=== PATIENT | male | born 1955 | race Two or more races ===

== ENCOUNTER 2021-05-10 10:17 | Inpatient (IN) | payer OTHER ==
[2021-05-10] VITALS (7 sets, daily range): BP systolic 114–173; BP diastolic 75–92
[~2021-05-10] VITALS: Ht 175.3 cm; Wt 115.1 kg
--- NOTE | 2021-05-10 10:21 | PHYS DOC ---
Past Medical History Past Medical History: No Pertinent History Past Surgical History: No Surgical History Smoking Status: Current Every Day Smoker Alcohol Use: None Drug Use: None General Adult HPI: HPI: Patient is a 65 year old male who presents with right upper extremity and right lower extremity weakness and tingling sensation. He went to bed around 9 PM last night and awoke around midnight, when he noticed the symptoms. He was unable to fully bear weight on his right lower extremity. He delayed coming in until after 10 AM today. He denies any previous similar symptoms. He denies headache, dizziness, vision loss, vision changes, difficulty swallowing, speech difficulty, denies facial numbness or tingling or facial droop. He denies chest pain, palpitations, dyspnea, dagmar pain, nausea or vomiting. He denies fall or syncope. He denies head injury. He has not seen a physician in at least 15 years. He claims to have no known medical problems, though he admits that he does not seek any routine medical care. Review of Systems: Review of Systems: Constitutional: Denies fever or chills. [] Eyes: Denies change in visual acuity or vision loss. HENT: Denies nasal congestion or sore throat. [] Respiratory: Denies cough or shortness of breath. [] Cardiovascular: Denies chest pain or edema. [] GI: Denies abdominal pain, nausea, vomiting : Denies urinary symptoms or incontinence. Musculoskeletal: Denies back pain or joint pain. [] Integument: Denies rash. [] Neurologic: Denies headache, dizziness, vertigo or syncope. Reports subjective right upper extremity and right lower extremity weakness and tingling. Denies speech difficulty. Psychiatric: Denies depression or anxiety. [] Heart Score: C/O Chest Pain: No Risk Factors: Risk Factors: DM, Current or recent (<one month) smoker, HTN, HLP, family history of CAD, obesity. Risk Scores: Score 0 - 3: 2.5% MACE over next 6 weeks - Discharge Home Score 4 - 6: 20.3% MACE over next 6 weeks - Admit for Clinical Observation Score 7 - 10: 72.7% MACE over next 6 weeks - Early Invasive Strategies Physical Exam: PE: Constitutional: Well developed, well nourished, no acute distress, non-toxic appearance. [] HENT: Normocephalic, atraumatic, oropharynx is patent and clear, no obvious facial asymmetry, no facial trauma or edema noted. Mucous membranes are moist. TMs are clear bilaterally Eyes: PERRL, EOMI, conjunctiva normal, no discharge. No nystagmus. Neck: Normal range of motion, no tenderness, supple, no stridor. Trachea midline, no JVD, no meningismus. Cardiovascular:Heart rate regular rhythm, no murmur, +2 radial and +2 posterior tibial pulses bilaterally. Lungs & Thorax: Bilateral breath sounds clear to auscultation [] Abdomen: Abdomen is obese, soft, nondistended, nontender to palpation. Skin: Warm, dry, no erythema, no rash. [] Back: No tenderness, no CVA tenderness. [] Extremities: No tenderness, no cyanosis, no clubbing, ROM intact, no edema. No calf tenderness. No limb deformity. Neurologic: He is awake, alert, conversant, fully oriented x3, there is subtle right-sided tongue deviation, no facial asymmetry or facial droop noted. His speech is clear and fluent. No gross visual deficit noted. Sensation is intact bilaterally. Display Card Writer strength normal and equal bilaterally. No pronator drift is noted. No upper extremity limb ataxia is noted. No lower extremity limb ataxia is noted. There is subtle weakness of the right lower extremity with extension against gravity, the leg does bounce but it does not drop to the bed. He was able to transfer from the ED gurney to the CT without difficulty or assistance. Psychologic: Affect relatively flat, though he is pleasant cooperative. EKG: EKG: EKG is interpreted at 1106 Rhythm is sinus Rate is 94 bpm QTc 489 ms No STEMI Radiology/Procedures: Radiology/Procedures: IMAGING REPORT Signed PATIENT: JACK BEST ACCOUNT: [id number] : 1955 LOCATION: ER AGE: 65 SEX: M EXAM STATUS: PRE ER ORD. PHYSICIAN: RYAN ALCALA DO REASON: right sided weakness PROCEDURE: CT CODE STROKE HEAD WO EXAM: CT head without contrast INDICATION: Stroke alert COMPARISON: None TECHNIQUE: Axial CT imaging through the head without intravenous contrast. One or more of the following individualized dose reduction techniques were utilized for this examination: 1. Automated exposure control 2. Adjustment of the mA and/or kV according to patient size 3. Use of iterative reconstruction technique. FINDINGS: No intracranial hemorrhage, acute infarct, or mass lesion. Ventricles and sulci are mildly enlarged. There is mild periventricular white matter hypoattenuation. Cordova-white matter differentiation is maintained. The skull and scalp are intact. Paranasal sinuses and mastoid air cells are clear. Globes and orbits are intact. IMPRESSION: No acute intracranial abnormality. FOR INTERNAL CODING PURPOSES Critical result: Findings discussed with RYAN ALCALA DO at 05/10/2021 10:35 AM. RESULT CODE: (C) Electronically signed by: Irais East MD (05/10/2021 10:36 AM) [id number] DICTATED and SIGNED BY: IRAIS EAST MD DATE: 05/10/21 [id number] IMAGING REPORT Signed PATIENT: JACK BEST ACCOUNT: [id number] : 1955 LOCATION: ER AGE: 65 SEX: M EXAM STATUS: PRE ER ORD. PHYSICIAN: RYAN ALCALA DO REASON: right sided weakness PROCEDURE: PORTABLE CHEST 1V EXAM: Chest, single view. HISTORY: Right-sided weakness. COMPARISON: None. FINDINGS: A frontal view of the chest is obtained. There is no infiltrate, pleural effusion or pneumothorax. The heart is normal in size. IMPRESSION: No acute pulmonary finding. Electronically signed by: Vivienne Hernandez MD (05/10/2021 10:42 AM) [facility] DICTATED and SIGNED BY: VIVIENNE HERNANDEZ MD DATE: 05/10/21 [id number] 0 Course & Med Decision Making: Course & Med Decision Making Pertinent Labs and Imaging studies reviewed. (See chart for details) Patient is given p.o. aspirin. CT imaging studies discussed and reviewed with the patient. He does not qualify for TPA. I do suspect he has had a mild CVA. I recommend hospitalization and neurology consultation and likely further imaging, such as MRI, as well as formal stroke work-up. He is comfortable with the plan of care. Systolic blood pressure remains under 200, though is still elevated, I do suspect he likely has chronic underlying hypertension that has been untreated for some time, he will likely require formal antihypertensive medications. I discussed all the findings and differential diagnosis with him. He is accepted for admission by Dr. Boland. Javier Disclaimer: Javier Disclaimer: This electronic medical record was generated, in whole or in part, using a voice recognition dictation system. Departure Departure Impression: Primary Impression: Right sided weakness Disposition: ADMITTED INPATIENT Admitting Phys[facility] Condition: STABLE (Dr. Boland) RYAN ALCALA DO May 10, 2021 10:21
--- NOTE | 2021-05-10 10:38 | RAD ---
EXAM: CT head without contrast INDICATION: Stroke alert COMPARISON: None TECHNIQUE: Axial CT imaging through the head without intravenous contrast. One or more of the following individualized dose reduction techniques were utilized for this examinat ion: 1. Automated exposure control 2. Adjustment of the mA and/or kV according to patient size 3. Use of iterative reconstruction technique. FINDINGS: No intracranial hemorrhage, acute infarct, or mass lesion. Ventricles and sulci are mildly enlarged. There is mild periventricular white matter hypoattenuation. Cordova-white matter differentiation is main tained. The skull and scalp are intact. Paranasal sinuses and mastoid air cells are clear. Globes and orbits are intact. IMPRESSION: No acute intracranial abnormality. FOR INTERNAL CODING PURPOSES Critical result: Findings discussed with RYAN ALCALA DO at 05/10/2021 10:35 AM. RESULT CODE: (C) Electronically signed by: Irais East MD (05/10/2021 10:36 AM) [id number]
--- NOTE | 2021-05-10 10:44 | RAD ---
EXAM: Chest, single view. HISTORY: Right-sided weakness. COMPARISON: None. FINDINGS: A frontal view of the chest is obtained. There is no infiltrate, pleural effusion or pneumo thorax. The heart is normal in size. IMPRESSION: No acute pulmonary finding. Electronically signed by: Vivienne Harvey MD (05/10/2021 10:42 AM) [facility]
[2021-05-10] MEDS ORDERED: ASPIRIN ENTERIC COATED 325 MG TABLET.DR. PO ONE (11:00)
[2021-05-10 11:11] LABS: BASO % 0 % (0-3); EOS # 0.1 x10^3/uL (0.0-0.7); EOS % 2 % (0-3); HEMATOCRIT 45.4 % (39.0-53.0); HEMOGLOBIN 15.3 g/dL (13.0-17.5); LYMPH # 1.6 x10^3/uL (1.0-4.8); LYMPH % 23 % (24-48); MEAN CORPUSCULAR HEMOGLOBIN 32 pg (25-35); MEAN CORPUSCULAR HGB CONC 34 g/dL (31-37); MEAN CORPUSCULAR VOLUME 95 fL (79-100); MONO # 0.6 x10^3/uL (0.0-1.1); MONO % 9 % (0-9); NEUT # 4.4 x10^3/uL (1.8-7.7); NEUT % 66 % (31-73); PLATELET COUNT 202 x10^3/uL (140-400); RED CELL DISTRIBUTION WIDTH 14.1 % (11.5-14.5); WHITE BLOOD COUNT 6.7 x10^3/uL (4.0-11.0)
[2021-05-10 11:14] LABS: CALCIUM 7.6 mg/dL (8.5-10.1); CREATININE 0.9 mg/dL (0.7-1.3); POTASSIUM 3.4 mmol/L (3.5-5.1)
[2021-05-10 11:19] LABS: ALBUMIN 3.1 g/dL (3.4-5.0); ALBUMIN/GLOBULIN RATIO 0.7 (1.0-1.7); MAGNESIUM 1.8 mg/dL (1.8-2.4); PHOSPHORUS 2.7 mg/dL (2.6-4.7); TOTAL BILIRUBIN 0.8 mg/dL (0.2-1.0); TOTAL PROTEIN 7.7 g/dL (6.4-8.2)
[2021-05-10 11:35] LABS: PROTHROMBIN TIME PATIENT 12.5 SEC (11.7-14.0)
[2021-05-10] MEDS ORDERED: CONTRAST GIVEN. MC PRN (11:45)
[2021-05-10] MEDS ORDERED: IOHEXOL 350 MG/ML 100 ML VIAL. IV ONE (12:00)
--- NOTE | 2021-05-10 12:05 | RAD ---
STUDY: CT angiography of the head and neck INDICATION: Stroke alert COMPARISON: Right-sided weakness TECHNIQUE: Axial CT imaging of the head and neck utilizing angiography protocol and performed after t he intravenous administration of 75 mL Omnipaque 350 contrast. Multiplanar reformats and 3D MIP acqui sitions were obtained. Encountered areas of stenosis are measured per NASCET criteria. One or more of the following individualized dose reduction techniques were utilized for this examinat ion: 1. Automated exposure control 2. Adjustment of the mA and/or kV according to patient size 3. Use of iterative reconstruction technique. FINDINGS: CTA NECK: Arch/Proximal Great Vessels: The arch is normal in configuration. Mild calcified aortic atheroscleros is. There is mild narrowing of the left common carotid artery origin due to calcifications. Carotid Bifurcation/Cervical ICA: Mild calcifications at the carotid bulbs and bifurcations without s ignificant stenosis. Approximately 40 percent narrowing of the distal cervical left internal carotid artery due to calcifications. Vertebral Arteries: Normal caliber and patent. CTA HEAD: Posterior Circulation: The distal right intradural vertebral artery is diminutive, likely due to sten osis. The intradural left vertebral artery is normal in caliber and patent. Basilar artery, superior cerebellar arteries, and posterior cerebral arteries are normal in caliber and patent. Anterior Circulation: Internal carotid arteries, middle cerebral arteries, and anterior cerebral avery bc are normal in caliber and patent. There are calcifications in the intracranial internal carotid arteries without significant narrowing. Veins: Dural venous sinuses and jugular veins are patent. MISCELLANEOUS: Mild scattered ground glass opacities in the upper lobes. IMPRESSION: 1. No large vessel occlusion in the head or neck. 2. Mild narrowing of the distal cervical left internal carotid artery due to calcifications. 3. Small caliber of the distal intradural right vertebral artery suspicious for stenosis. FOR INTERNAL CODING PURPOSES Critical result: Findings discussed with RYAN ALCALA DO at 05/10/2021 11:53 AM. RESULT CODE: (C) Electronically signed by: Irais East MD (05/10/2021 12:02 PM) [id number]
--- NOTE | 2021-05-10 12:21 | PDOC1 ---
History and Physical Date of Service: DOS: DATE: 05/10/21 TIME: 12:13 Chief Complaint: Chief Complain: Unilateral weakness History of Present Illness: HPI: 66-year-old male with past medical history of hypertension not taking any medication and smoker who comes in with right-sided weakness and tingling sensation around 9:00 last night. Patient was unable to bear weight on his right lower extremity. He comes in 10:00 this morning with similar symptoms. Denies headaches, dizziness, blurry vision, syncope, difficulty speaking, facial droop or facial numbness or palpitations or nausea or vomiting. No head injury. Has not seen a PCP in 15 years. Past Medical/Surgical History: PMH/PSH: Past Medical History: No Pertinent History Past Surgical History: No Surgical History Allergies: Allergies: Coded Allergies: No Known Drug Allergies (Unverified , 05/10/21) Family History: Family History: Reviewed with no relevant findings in the chart Social History: Social History: Smoking Status: Current Every Day Smoker Alcohol Use: None Drug Use: None Current Medications: Current Medications Current Medications Aspirin (Ecotrin) 325 mg 1X ONCE PO Last administered on 05/10/21at 11:54; Start 05/10/21 at 11:00; Stop 05/10/21 at 11:01; Status DC Iohexol (Omnipaque 350 Mg/ml) 75 ml 1X ONCE IV Last administered on 05/10/21at 11:38; Start 05/10/21 at 12:00; Stop 05/10/21 at 12:01; Status DC Info (CONTRAST GIVEN -- Rx MONITORING) 1 each PRN DAILY PRN MC SEE COMMENTS; Start 05/10/21 at 11:45; Stop 05/12/21 at 11:44 ROS: Review of Systems Review of System REVIEW OF SYSTEMS: GENERAL: Denies weakness SKIN: No bruising, hair changes or rashes. EYES: No blurred, double or loss of vision. NOSE AND THROAT: No history of nosebleeds, hoarseness or sore throat. HEART: No history of palpitations, chest pain or shortness of breath on exertion. LUNGS: Denies cough, hemoptysis, wheezing or shortness of breath. GASTROINTESTINAL: Denies changes in appetite, nausea, vomiting, diarrhea or constipation. GENITOURINARY: No history of frequency, urgency, hesitancy or nocturia. NEUROLOGIC: Right-sided weakness. PSYCHIATRIC: No history of panic, anxiety or depression. ENDOCRINE: No history of heat or cold intolerance, polyuria or polydipsia. EXTREMITIES: Right-sided weakness Physical Exam: Vital Signs: Vital Signs Date Time Temp Pulse Resp B/P (MAP) Pulse Ox O2 Delivery O2 Flow Rate FiO2 05/10/21 10:20 98.5 101 20 202/90 (127) 96 Room Air 98.5 Physcial Exam: General: Well developed, well nourished, no acute distress, well appearing HEENT: Pupils equally round and reactive to light, EOMI, no discharge, normal conjunctiva Neck: Supple, no nuchal rigidity, no JVD, trachea midline, no tenderness Cardiac: RRR, no murmurs, no gallops, no rubs Chest/Lungs: CTAB, no wheeze, no rhonchi, no crackles Abdomen: soft, non-distended, no guarding, no peritoneal signs, non-tender Back: No tenderness Extremities: no edema, pulses intact, non-tender,capillary refill <3 sec bilateral upper and lower extremities, Neuro: Alert and oriented x 4, possible right-sided tongue deviation, normal speech. No pronator drift. Labs: Labs: Laboratory Tests Test 05/10/21 10:24 05/10/21 10:45 Glucose (Fingerstick) 105 mg/dL (70-99) White Blood Count 6.7 x10^3/uL (4.0-11.0) Red Blood Count 4.80 x10^6/uL (4.30-5.70) Hemoglobin 15.3 g/dL (13.0-17.5) Hematocrit 45.4 % (39.0-53.0) Mean Corpuscular Volume 95 fL (79-100) Mean Corpuscular Hemoglobin 32 pg (25-35) Mean Corpuscular Hemoglobin Concent 34 g/dL (31-37) Red Cell Distribution Width 14.1 % (11.5-14.5) Platelet Count 202 x10^3/uL (140-400) Neutrophils (%) (Auto) 66 % (31-73) Lymphocytes (%) (Auto) 23 % (24-48) Monocytes (%) (Auto) 9 % (0-9) Eosinophils (%) (Auto) 2 % (0-3) Basophils (%) (Auto) 0 % (0-3) Neutrophils # (Auto) 4.4 x10^3/uL (1.8-7.7) Lymphocytes # (Auto) 1.6 x10^3/uL (1.0-4.8) Monocytes # (Auto) 0.6 x10^3/uL (0.0-1.1) Eosinophils # (Auto) 0.1 x10^3/uL (0.0-0.7) Basophils # (Auto) 0.0 x10^3/uL (0.0-0.2) Prothrombin Time 12.5 SEC (11.7-14.0) Prothromb Time International Ratio 0.9 (0.8-1.1) Activated Partial Thromboplast Time 43 SEC (24-38) Sodium Level 141 mmol/L (136-145) Potassium Level 3.4 mmol/L (3.5-5.1) Chloride Level 102 mmol/L (98-107) Carbon Dioxide Level 27 mmol/L (21-32) Anion Gap 12 (6-14) Blood Urea Nitrogen 7 mg/dL (8-26) Creatinine 0.9 mg/dL (0.7-1.3) Estimated GFR (Cockcroft-Gault) 85.0 BUN/Creatinine Ratio 8 (6-20) Glucose Level 103 mg/dL (70-99) Calcium Level 7.6 mg/dL (8.5-10.1) Phosphorus Level 2.7 mg/dL (2.6-4.7) Magnesium Level 1.8 mg/dL (1.8-2.4) Total Bilirubin 0.8 mg/dL (0.2-1.0) Aspartate Amino Transf (AST/SGOT) 26 U/L (15-37) Alanine Aminotransferase (ALT/SGPT) 30 U/L (16-63) Alkaline Phosphatase 84 U/L (46-116) Creatine Kinase 366 U/L (39-308) Troponin I High Sensitivity 13 ng/L (4-75) Total Protein 7.7 g/dL (6.4-8.2) Albumin 3.1 g/dL (3.4-5.0) Albumin/Globulin Ratio 0.7 (1.0-1.7) Laboratory Tests Test 05/10/21 10:24 05/10/21 10:45 Glucose (Fingerstick) 105 mg/dL (70-99) White Blood Count 6.7 x10^3/uL (4.0-11.0) Red Blood Count 4.80 x10^6/uL (4.30-5.70) Hemoglobin 15.3 g/dL (13.0-17.5) Hematocrit 45.4 % (39.0-53.0) Mean Corpuscular Volume 95 fL (79-100) Mean Corpuscular Hemoglobin 32 pg (25-35) Mean Corpuscular Hemoglobin Concent 34 g/dL (31-37) Red Cell Distribution Width 14.1 % (11.5-14.5) Platelet Count 202 x10^3/uL (140-400) Neutrophils (%) (Auto) 66 % (31-73) Lymphocytes (%) (Auto) 23 % (24-48) Monocytes (%) (Auto) 9 % (0-9) Eosinophils (%) (Auto) 2 % (0-3) Basophils (%) (Auto) 0 % (0-3) Neutrophils # (Auto) 4.4 x10^3/uL (1.8-7.7) Lymphocytes # (Auto) 1.6 x10^3/uL (1.0-4.8) Monocytes # (Auto) 0.6 x10^3/uL (0.0-1.1) Eosinophils # (Auto) 0.1 x10^3/uL (0.0-0.7) Basophils # (Auto) 0.0 x10^3/uL (0.0-0.2) Prothrombin Time 12.5 SEC (11.7-14.0) Prothromb Time International Ratio 0.9 (0.8-1.1) Activated Partial Thromboplast Time 43 SEC (24-38) Sodium Level 141 mmol/L (136-145) Potassium Level 3.4 mmol/L (3.5-5.1) Chloride Level 102 mmol/L (98-107) Carbon Dioxide Level 27 mmol/L (21-32) Anion Gap 12 (6-14) Blood Urea Nitrogen 7 mg/dL (8-26) Creatinine 0.9 mg/dL (0.7-1.3) Estimated GFR (Cockcroft-Gault) 85.0 BUN/Creatinine Ratio 8 (6-20) Glucose Level 103 mg/dL (70-99) Calcium Level 7.6 mg/dL (8.5-10.1) Phosphorus Level 2.7 mg/dL (2.6-4.7) Magnesium Level 1.8 mg/dL (1.8-2.4) Total Bilirubin 0.8 mg/dL (0.2-1.0) Aspartate Amino Transf (AST/SGOT) 26 U/L (15-37) Alanine Aminotransferase (ALT/SGPT) 30 U/L (16-63) Alkaline Phosphatase 84 U/L (46-116) Creatine Kinase 366 U/L (39-308) Troponin I High Sensitivity 13 ng/L (4-75) Total Protein 7.7 g/dL (6.4-8.2) Albumin 3.1 g/dL (3.4-5.0) Albumin/Globulin Ratio 0.7 (1.0-1.7) Images: Images PROCEDURE: CT CODE STROKE HEAD WO EXAM: CT head without contrast INDICATION: Stroke alert COMPARISON: None TECHNIQUE: Axial CT imaging through the head without intravenous contrast. One or more of the following individualized dose reduction techniques were utilized for this examination: 1. Automated exposure control 2. Adjustment of the mA and/or kV according to patient size 3. Use of iterative reconstruction technique. FINDINGS: No intracranial hemorrhage, acute infarct, or mass lesion. Ventricles and sulci are mildly enlarged. There is mild periventricular white matter hypoattenuation. Cordova-white matter differentiation is maintained. The skull and scalp are intact. Paranasal sinuses and mastoid air cells are clear. Globes and orbits are intact. IMPRESSION: No acute intracranial abnormality. PROCEDURE: CT ANGIOGRAPHY HEAD AND NECK STUDY: CT angiography of the head and neck INDICATION: Stroke alert COMPARISON: Right-sided weakness TECHNIQUE: Axial CT imaging of the head and neck utilizing angiography protocol and performed after the intravenous administration of 75 mL Omnip[address] Multiplanar reformats and 3D MIP acquisitions were obtained. Encountered areas of stenosis are measured per NASCET criteria. One or more of the following individualized dose reduction techniques were utilized for this examination: 1. Automated exposure control 2. Adjustment of the mA and/or kV according to patient size 3. Use of iterative reconstruction technique. FINDINGS: CTA NECK: Arch/Proximal Great Vessels: The arch is normal in configuration. Mild calcified aortic atherosclerosis. There is mild narrowing of the left common carotid artery origin due to calcifications. Carotid Bifurcation/Cervical ICA: Mild calcifications at the carotid bulbs and bifurcations without significant stenosis. Approximately 40 percent narrowing of the distal cervical left internal carotid artery due to calcifications. Vertebral Arteries: Normal caliber and patent. CTA HEAD: Posterior Circulation: The distal right intradural vertebral artery is diminutive, likely due to stenosis. The intradural left vertebral artery is normal in caliber and patent. Basilar artery, superior cerebellar arteries, and posterior cerebral arteries are normal in caliber and patent. Anterior Circulation: Internal carotid arteries, middle cerebral arteries, and anterior cerebral arteries are normal in caliber and patent. There are calcifications in the intracranial internal carotid arteries without significant narrowing. Veins: Dural venous sinuses and jugular veins are patent. MISCELLANEOUS: Mild scattered ground glass opacities in the upper lobes. IMPRESSION: 1. No large vessel occlusion in the head or neck. 2. Mild narrowing of the distal cervical left internal carotid artery due to calcifications. 3. Small caliber of the distal intradural right vertebral artery suspicious for stenosis. Assessment/Plan Assessment/Plan Problem List: TIA, rule out stroke Hypertensive urgency Hypokalemia Morbid Obesity Tobacco misuse Admit to hospitalist service for further management Neurology consult for stroke work-up ABCD score 4 EKG is interpreted at 1106 Rhythm is sinus Rate is 94 bpm QTc 489 ms No STEMI Onset of symptoms > 4.5 hours Admit to medicine for further workup Neuro consult Pending MRI brain, TTE continue telemonitoring for at least 24 hours contine IVF while NPO maintain normoglycemia with goals of 140-180 permissive HTN with goals between 140-180/90-105 for at least 24 hours if tPA administered, maintain BP goals < 180/105 for at least 24 hours continue ASA 81 daily within 48 hours continue high intensity statins pending PT/OT/speech Smoking cessation: Total time spent was 12 minutes in face to face counseling. Patient has agreed to consider nicotine patches/gum or to start on Varnicline when discharged Weight loss encouraged with diet and exercise Justifications for Admission Other Justification SUHAIL CORRALES MD May 10, 2021 12:21
[2021-05-10] MEDS ORDERED: ZOLPIDEM 5 MG TABLET. PO PRN (12:30)
[2021-05-10] MEDS ORDERED: ACETAMINOPHEN 325 MG TABLET. PO PRN (12:30)
[2021-05-10] MEDS ORDERED: LORazepam 0.5 MG TABLET PO PRN (12:30)
[2021-05-10] MEDS ORDERED: hydrALAZINE 20 MG/ML VIAL. IVP PRN (12:30)
[2021-05-10] MEDS ORDERED: PROCHLORPERAZINE 10 MG/2 ML VIAL. IV PRN (12:30)
[2021-05-10] MEDS ORDERED: DOCUSATE SODIUM 100 MG CAPSULE. PO PRN (12:30)
[2021-05-10] MEDS ORDERED: diphenhydrAMINE 50 MG/ML VIAL IVP PRN (12:30)
[2021-05-10] MEDS ORDERED: ONDANSETRON PF 4 MG/2 ML VIAL. IVP PRN (12:30)
[2021-05-10] MEDS ORDERED: diphenhydrAMINE HCL 25 MG CAPSULE PO PRN ×2 (12:30)
[2021-05-10] MEDS ORDERED: DEXTROSE 50% 25 GM / 50ML DISP.SYRIN. IV PRN (12:30)
[2021-05-10] MEDS ORDERED: SENNOSIDES 8.6 MG TABLET PO PRN (12:30)
[2021-05-10] MEDS: LABETALOL 20 MG/4 ML DISP.SYRIN. IVP PRN ×2 (14:06→18:23)
--- NOTE | 2021-05-10 14:43 | EKG ---
[facility] [address] [place] [address] Test Date: 2021-05-10 Test Time: 10:58:09 Pat Name: JACK BEST Department: Room: ED HOLD 13 Gender: M Labeling Strategist: : 1955 Requested By: RYAN ALCALA Order Number: [id number] Reading MD: Joe Perdue Measurements Intervals Leon Rate: 93 P: 36 MO: 144 QRS: 20 QRSD: 86 T: 17 QT: 392 QTc: 490 Interpretive Statements SINUS RHYTHM PROLONGED QT Electronically Signed On 05-11-2021 9:23:29 FLEXOGRAPHIC PRESS OPERATOR by Joe Perdue
[2021-05-11] VITALS (9 sets, daily range): BP systolic 140–193; BP diastolic 71–94
[2021-05-11 04:34] LABS: BASO % 1 % (0-3); EOS # 0.2 x10^3/uL (0.0-0.7); EOS % 3 % (0-3); HEMATOCRIT 40.7 % (39.0-53.0); LYMPH # 1.4 x10^3/uL (1.0-4.8); LYMPH % 24 % (24-48); MEAN CORPUSCULAR HEMOGLOBIN 33 pg (25-35); MEAN CORPUSCULAR HGB CONC 34 g/dL (31-37); MEAN CORPUSCULAR VOLUME 95 fL (79-100); MONO # 0.5 x10^3/uL (0.0-1.1); MONO % 9 % (0-9); NEUT % 65 % (31-73); PLATELET COUNT 175 x10^3/uL (140-400); RED BLOOD COUNT 4.28 x10^6/uL (4.30-5.70); RED CELL DISTRIBUTION WIDTH 14.4 % (11.5-14.5); WHITE BLOOD COUNT 6.1 x10^3/uL (4.0-11.0)
[2021-05-11 05:31] LABS: CALCIUM 7.6 mg/dL (8.5-10.1); CREATININE 0.8 mg/dL (0.7-1.3); GFR 97.3; MAGNESIUM 1.9 mg/dL (1.8-2.4); PHOSPHORUS 3.8 mg/dL (2.6-4.7); POTASSIUM 3.3 mmol/L (3.5-5.1)
[2021-05-11] MEDS: LABETALOL 20 MG/4 ML DISP.SYRIN. IVP PRN (10:54)
[2021-05-11] MEDS ORDERED: POTASSIUM CHLORIDE 20 MEQ TABLET.ER. PO ONE ×2 (11:30→13:30)
[2021-05-11] MEDS ORDERED: FUROSEMIDE 40 MG/4 ML VIAL. IVP ONE (11:30)
--- NOTE | 2021-05-11 11:57 | PDOC ---
[employer] PROGRESS NOTE Date of Service DOS: DATE: 05/11/21 TIME: 11:54 Chief Complaint Chief Complaint TIA, rule out stroke Hypertensive urgency Noncompliance (does not go to the doctor) Probable metabolic syndrome Hypokalemia Morbid Obesity Tobacco misuse History of Present Illness History of Present Illness 05/11/2021 Patient seen and examined in the ICU His stroke symptoms seem to be resolving blood pressure still running 215/100 I had the nurse give some IV Lasix and potassium and I ordered p.o. [facility] Chart reviewed Vitals/I&O Vitals/I&O: Vital Signs Date Time Temp Pulse Resp B/P (MAP) Pulse Ox O2 Delivery O2 Flow Rate FiO2 05/11/21 11:00 98.6 74 20 192/86 (121) 96 Room Air 98.6 05/11/21 03:00 I & O 05/10/21 05/10/21 05/11/21 15:00 23:00 07:00 Output Total 450 ml Balance -450 ml Physical Exam General: Alert Heart: Regular rate, Normal S2 Abdomen: Normal bowel sounds, Other (Obese) Extremities: No clubbing Skin: No rashes Labs Labs: Laboratory Tests Test 05/11/21 04:00 White Blood Count 6.1 x10^3/uL (4.0-11.0) Red Blood Count 4.28 x10^6/uL (4.30-5.70) Hemoglobin 14.0 g/dL (13.0-17.5) Hematocrit 40.7 % (39.0-53.0) Mean Corpuscular Volume 95 fL (79-100) Mean Corpuscular Hemoglobin 33 pg (25-35) Mean Corpuscular Hemoglobin Concent 34 g/dL (31-37) Red Cell Distribution Width 14.4 % (11.5-14.5) Platelet Count 175 x10^3/uL (140-400) Neutrophils (%) (Auto) 65 % (31-73) Lymphocytes (%) (Auto) 24 % (24-48) Monocytes (%) (Auto) 9 % (0-9) Eosinophils (%) (Auto) 3 % (0-3) Basophils (%) (Auto) 1 % (0-3) Neutrophils # (Auto) 4.0 x10^3/uL (1.8-7.7) Lymphocytes # (Auto) 1.4 x10^3/uL (1.0-4.8) Monocytes # (Auto) 0.5 x10^3/uL (0.0-1.1) Eosinophils # (Auto) 0.2 x10^3/uL (0.0-0.7) Basophils # (Auto) 0.0 x10^3/uL (0.0-0.2) Sodium Level 140 mmol/L (136-145) Potassium Level 3.3 mmol/L (3.5-5.1) Chloride Level 102 mmol/L (98-107) Carbon Dioxide Level 30 mmol/L (21-32) Anion Gap 8 (6-14) Blood Urea Nitrogen 8 mg/dL (8-26) Creatinine 0.8 mg/dL (0.7-1.3) Estimated GFR (Cockcroft-Gault) 97.3 Glucose Level 98 mg/dL (70-99) Calcium Level 7.6 mg/dL (8.5-10.1) Phosphorus Level 3.8 mg/dL (2.6-4.7) Magnesium Level 1.9 mg/dL (1.8-2.4) Assessment and Plan Assessmemt and Plan Problems Medical Problems: (1) Right sided weakness Status: Acute (2) Weakness of right lower extremity Status: Acute TIA, rule out stroke Hypertensive urgency Noncompliance (he does not go see a doctor) Probable metabolic syndrome Hypokalemia Morbid Obesity Tobacco misuse Plan Hope to transfer out of ICU later today I ordered daily Norvasc and Lasix and potassium Neurochecks DVT prophylaxis Lifestyle modification with weight loss and low-sodium diet (I spoke with him about this) Appreciate neurology input PT OT Daily aspirin and statin Comment Review of Relevant I have reviewed the following items pb (where applicable) has been applied. Medications: Current Medications Medications (Trade) Dose Ordered Sig/Bryant Route PRN Reason Start Time Stop Time Status Last Admin Dose Admin Iohexol (Omnipaque 350 Mg/ml) 75 ml 1X ONCE IV 05/10/21 12:00 05/10/21 12:01 DC 05/10/21 11:38 Hydralazine HCl (Apresoline Inj) 10 mg PRN Q4HRS PRN IVP HYPERTENSION, 2nd CHOICE 05/10/21 12:30 05/11/21 09:34 Labetalol HCl (Normodyne Iv Push) 20 mg PRN Q2HR PRN IVP HYPERTENSION, 1st CHOICE 05/10/21 12:30 05/11/21 10:54 Furosemide (Lasix) 40 mg 1X ONCE IVP 05/11/21 11:30 05/11/21 11:31 DC 05/11/21 11:30 Potassium Chloride (Klor-Con) 40 meq 1X ONCE PO 05/11/21 11:30 05/11/21 11:31 DC 05/11/21 11:30 Justifications for Admission Other Justification TIA rule out stroke JENNIFER OROZCO III DO May 11, 2021 11:57
[2021-05-11] MEDS: ASPIRIN 325 MG TABLET PO SCH (13:07)
[2021-05-11] MEDS: ENOXAPARIN 40 MG/0.4 ML SYRINGE. SQ SCH (14:05)
--- NOTE | 2021-05-11 15:19 | PDOC2 ---
NEUROLOGY CONSULT Date of Service DOS: DATE: 05/11/21 TIME: 14:56 Reason for Consult Reason for Consult: Concern for stroke Referring Physician Referring Physician: Dr. Eddie Cordova Identification/Chief Complaint Chief Complaint Patient is a pleasant 65-year-old man who I difficulty on 05/09/2021 around 11- midnight. He got up to go to the bathroom when suddenly his entire right side became weak. He was not able to move his right arm or leg. He did manage with great effort to crawl back to his bed and climb into his bed. His works nights so was not there to help. He has 10-year-old and 11-year-old children who heard him and helped him back to the bed. When his returned from work the next morning she got him into the car and he came to [facility] emergency room. Since being in the hospital his right arm and leg have returned to virtual normal. He has never had similar symptoms. He last was evaluated by a physician in 2003. He does not take any prescription medicines or do any regular monitoring. In the emergency room his blood pressure was found to be critically elevated. This did not affect his vision, hearing or thinking. He did not notice any numbness. Current Medications Current Medications Current Medications Aspirin (Ecotrin) 325 mg 1X ONCE PO Last administered on 05/10/21at 11:54; Start 05/10/21 at 11:00; Stop 05/10/21 at 11:01; Status DC Iohexol (Omnipaque 350 Mg/ml) 75 ml 1X ONCE IV Last administered on 05/10/21at 11:38; Start 05/10/21 at 12:00; Stop 05/10/21 at 12:01; Status DC Info (CONTRAST GIVEN -- Rx MONITORING) 1 each PRN DAILY PRN MC SEE COMMENTS; Start 05/10/21 at 11:45; Stop 05/12/21 at 11:44 Hydralazine HCl (Apresoline Inj) 10 mg PRN Q4HRS PRN IVP HYPERTENSION, 2nd CHOICE Last administered on 05/11/21at 09:34; Start 05/10/21 at 12:30 Labetalol HCl (Normodyne Iv Push) 20 mg PRN Q2HR PRN IVP HYPERTENSION, 1st CHOICE Last administered on 05/11/21at 10:54; Start 05/10/21 at 12:30 Sennosides (Senna) 17.2 mg PRN BID PRN PO CONSTIPATION; Start 05/10/21 at 12:30 Docusate Sodium (Colace) 100 mg PRN DAILY PRN PO HARD STOOLS; Start 05/10/21 at 12:30 Ondansetron HCl (Zofran) 4 mg PRN Q6HRS PRN IVP NAUSEA/VOMITING, 1st CHOICE; Start 05/10/21 at 12:30 Dextrose (Dextrose 50%-Water Syringe) 12.5 gm PRN Q15MIN PRN IV SEE COMMENTS; Start 05/10/21 at 12:30 Acetaminophen (Tylenol) 650 mg PRN Q4HRS PRN PO TEMP OVER 100.4F OR MILD PAIN; Start 05/10/21 at 12:30 Lorazepam (Ativan) 0.5 mg PRN Q6HRS PRN PO ANXIETY / AGITATION; Start 05/10/21 at 12:30 Lorazepam (Ativan Inj) 0.25 mg PRN Q4HRS PRN IV ANXIETY / AGITATION; Start 05/10/21 at 12:30 Prochlorperazine Edisylate (Compazine) 10 mg PRN Q6HRS PRN IV NAUSEA/VOMITING, 2nd CHOICE; Start 05/10/21 at 12:30 Diphenhydramine HCl (Benadryl) 25 mg PRN Q6HRS PRN IVP ITCHING; Start 05/10/21 at 12:30 Diphenhydramine HCl (Benadryl) 25 mg PRN Q6HRS PRN PO ITCHING; Start 05/10/21 at 12:30 Diphenhydramine HCl (Benadryl) 25 mg PRN QHS PRN PO INSOMNIA, 1st CHOICE; Start 05/10/21 at 12:30 Zolpidem Tartrate (Ambien) 2.5 mg PRN QHS PRN PO INSOMNIA, 2nd CHOICE; Start 05/10/21 at 12:30 Furosemide (Lasix) 40 mg 1X ONCE IVP Last administered on 05/11/21at 11:30; Start 05/11/21 at 11:30; Stop 05/11/21 at 11:31; Status DC Potassium Chloride (Klor-Con) 40 meq 1X ONCE PO Last administered on 05/11/21at 11:30; Start 05/11/21 at 11:30; Stop 05/11/21 at 11:31; Status DC Potassium Chloride (Klor-Con) 40 meq 1X ONCE PO Last administered on 05/11/21at 13:06; Start 05/11/21 at 13:30; Stop 05/11/21 at 13:31; Status DC Amlodipine Besylate (Norvasc) 10 mg DAILY PO Last administered on 05/11/21at 13:07; Start 05/11/21 at 12:00 Furosemide (Lasix) 40 mg DAILY PO ; Start 05/12/21 at 09:00 Potassium Chloride (Klor-Con) 20 meq DAILY PO ; Start 05/12/21 at 09:00 Atorvastatin Calcium (Lipitor) 40 mg QHS PO ; Start 05/11/21 at 21:00 Aspirin (Rolly Aspirin) 325 mg DAILYWBKFT PO Last administered on 05/11/21at 13:07; Start 05/11/21 at 12:30 Enoxaparin Sodium (Lovenox 40mg Syringe) 40 mg Q24H SQ Last administered on 05/11/21at 14:05; Start 05/11/21 at 14:00 Allergies Allergies: Coded Allergies: No Known Drug Allergies (Unverified , 05/10/21) ROS Review of System Constitutional: Negative Eyes: Negative HENT: Negative Respiratory: When he takes a deep breath he coughs. Cardiovascular: He has not had chest pain. GI: He has not had constipation or diarrhea. : He denies any concerns. Musculoskeletal: Negative Neurologic: He had right-sided weakness. Hematologic: Negative Lymphatic: He has had swelling of his ankles and feet for the last 4 years. Psychiatric: Negative Physical Exam Physical Examination He was alert, awake and cooperative. Speech was fluent and clear. He had a good fund of recent and remote knowledge. Attention and concentration was intact. He appeared well groomed and well nourished. He was fully oriented. Examination of the cranial nerves revealed visual araujo were full to confrontation. Extraocu lar movements were intact. The eyes were conjugate. Pursuit movements were smooth and saccadic eye movements were without dysmetria. Pupils were 3 mm. Facial sensation was intact. The muscles of mastication were powerful symmetrically. Hearing was intact to finger rub. The palate arched symmetrically and the tongue was slightly deviated to the right with full motion. Sternocleidomastoid and trapezius were powerful. Muscle bulk and tone was normal. There was no arm or leg drift. He did seem to have a slight amount of rebound in the right arm. Power was full and symmetric in the upper and lower extremities. Reflexes were 2/4 and symmetric in the upper and lower extremities. The toes were not upgoing. Coordination testing with [id number], [id number], fine motor and rapid alternating movements was well performed. Sensory examination was intact to pain, light touch, proprioception, graphesthesia, cold thermal and vibration. There was no extinction to double simultaneous stimulation. Gait was not testable. Auscultation of the carotid arteries did not reveal a bruit. Heart rhythm was regular without a murmur. Peripheral pulses were symmetric in the wrists. He had edema of the ankles and feet. Vitals VITALS Vital Signs Date Time Temp Pulse Resp B/P (MAP) Pulse Ox O2 Delivery O2 Flow Rate FiO2 05/11/21 13:07 71 179/80 05/11/21 11:00 98.6 20 96 Room Air 98.6 05/11/21 03:00 Labs Labs Laboratory Tests Test 05/10/21 10:24 05/10/21 10:45 05/11/21 04:00 Glucose (Fingerstick) 105 mg/dL (70-99) White Blood Count 6.7 x10^3/uL (4.0-11.0) 6.1 x10^3/uL (4.0-11.0) Red Blood Count 4.80 x10^6/uL (4.30-5.70) 4.28 x10^6/uL (4.30-5.70) Hemoglobin 15.3 g/dL (13.0-17.5) 14.0 g/dL (13.0-17.5) Hematocrit 45.4 % (39.0-53.0) 40.7 % (39.0-53.0) Mean Corpuscular Volume 95 fL (79-100) 95 fL (79-100) Mean Corpuscular Hemoglobin 32 pg (25-35) 33 pg (25-35) Mean Corpuscular Hemoglobin Concent 34 g/dL (31-37) 34 g/dL (31-37) Red Cell Distribution Width 14.1 % (11.5-14.5) 14.4 % (11.5-14.5) Platelet Count 202 x10^3/uL (140-400) 175 x10^3/uL (140-400) Neutrophils (%) (Auto) 66 % (31-73) 65 % (31-73) Lymphocytes (%) (Auto) 23 % (24-48) 24 % (24-48) Monocytes (%) (Auto) 9 % (0-9) 9 % (0-9) Eosinophils (%) (Auto) 2 % (0-3) 3 % (0-3) Basophils (%) (Auto) 0 % (0-3) 1 % (0-3) Neutrophils # (Auto) 4.4 x10^3/uL (1.8-7.7) 4.0 x10^3/uL (1.8-7.7) Lymphocytes # (Auto) 1.6 x10^3/uL (1.0-4.8) 1.4 x10^3/uL (1.0-4.8) Monocytes # (Auto) 0.6 x10^3/uL (0.0-1.1) 0.5 x10^3/uL (0.0-1.1) Eosinophils # (Auto) 0.1 x10^3/uL (0.0-0.7) 0.2 x10^3/uL (0.0-0.7) Basophils # (Auto) 0.0 x10^3/uL (0.0-0.2) 0.0 x10^3/uL (0.0-0.2) Prothrombin Time 12.5 SEC (11.7-14.0) Prothromb Time International Ratio 0.9 (0.8-1.1) Activated Partial Thromboplast Time 43 SEC (24-38) Sodium Level 141 mmol/L (136-145) 140 mmol/L (136-145) Potassium Level 3.4 mmol/L (3.5-5.1) 3.3 mmol/L (3.5-5.1) Chloride Level 102 mmol/L (98-107) 102 mmol/L (98-107) Carbon Dioxide Level 27 mmol/L (21-32) 30 mmol/L (21-32) Anion Gap 12 (6-14) 8 (6-14) Blood Urea Nitrogen 7 mg/dL (8-26) 8 mg/dL (8-26) Creatinine 0.9 mg/dL (0.7-1.3) 0.8 mg/dL (0.7-1.3) Estimated GFR (Cockcroft-Gault) 85.0 97.3 BUN/Creatinine Ratio 8 (6-20) Glucose Level 103 mg/dL (70-99) 98 mg/dL (70-99) Calcium Level 7.6 mg/dL (8.5-10.1) 7.6 mg/dL (8.5-10.1) Phosphorus Level 2.7 mg/dL (2.6-4.7) 3.8 mg/dL (2.6-4.7) Magnesium Level 1.8 mg/dL (1.8-2.4) 1.9 mg/dL (1.8-2.4) Total Bilirubin 0.8 mg/dL (0.2-1.0) Aspartate Amino Transf (AST/SGOT) 26 U/L (15-37) Alanine Aminotransferase (ALT/SGPT) 30 U/L (16-63) Alkaline Phosphatase 84 U/L (46-116) Creatine Kinase 366 U/L (39-308) Troponin I High Sensitivity 13 ng/L (4-75) Total Protein 7.7 g/dL (6.4-8.2) Albumin 3.1 g/dL (3.4-5.0) Albumin/Globulin Ratio 0.7 (1.0-1.7) Laboratory Tests Test 05/11/21 04:00 White Blood Count 6.1 x10^3/uL (4.0-11.0) Red Blood Count 4.28 x10^6/uL (4.30-5.70) Hemoglobin 14.0 g/dL (13.0-17.5) Hematocrit 40.7 % (39.0-53.0) Mean Corpuscular Volume 95 fL (79-100) Mean Corpuscular Hemoglobin 33 pg (25-35) Mean Corpuscular Hemoglobin Concent 34 g/dL (31-37) Red Cell Distribution Width 14.4 % (11.5-14.5) Platelet Count 175 x10^3/uL (140-400) Neutrophils (%) (Auto) 65 % (31-73) Lymphocytes (%) (Auto) 24 % (24-48) Monocytes (%) (Auto) 9 % (0-9) Eosinophils (%) (Auto) 3 % (0-3) Basophils (%) (Auto) 1 % (0-3) Neutrophils # (Auto) 4.0 x10^3/uL (1.8-7.7) Lymphocytes # (Auto) 1.4 x10^3/uL (1.0-4.8) Monocytes # (Auto) 0.5 x10^3/uL (0.0-1.1) Eosinophils # (Auto) 0.2 x10^3/uL (0.0-0.7) Basophils # (Auto) 0.0 x10^3/uL (0.0-0.2) Sodium Level 140 mmol/L (136-145) Potassium Level 3.3 mmol/L (3.5-5.1) Chloride Level 102 mmol/L (98-107) Carbon Dioxide Level 30 mmol/L (21-32) Anion Gap 8 (6-14) Blood Urea Nitrogen 8 mg/dL (8-26) Creatinine 0.8 mg/dL (0.7-1.3) Estimated GFR (Cockcroft-Gault) 97.3 Glucose Level 98 mg/dL (70-99) Calcium Level 7.6 mg/dL (8.5-10.1) Phosphorus Level 3.8 mg/dL (2.6-4.7) Magnesium Level 1.9 mg/dL (1.8-2.4) Images Images CT angiogram of the head and neck 05/10/2021 FINDINGS: CTA NECK: Arch/Proximal Great Vessels: The arch is normal in configuration. Mild calcified aortic atherosclerosis. There is mild narrowing of the left common carotid artery origin due to calcifications. Carotid Bifurcation/Cervical ICA: Mild calcifications at the carotid bulbs and bifurcations without significant stenosis. Approximately 40 percent narrowing of the distal cervical left internal carotid artery due to calcifications. Vertebral Arteries: Normal caliber and patent. CTA HEAD: Posterior Circulation: The distal right intradural vertebral artery is diminutive, likely due to stenosis. The intradural left vertebral artery is normal in caliber and patent. Basilar artery, superior cerebellar arteries, and posterior cerebral arteries are normal in caliber and patent. Anterior Circulation: Internal carotid arteries, middle cerebral arteries, and anterior cerebral arteries are normal in caliber and patent. There are calcifications in the intracranial internal carotid arteries without significant narrowing. Veins: Dural venous sinuses and jugular veins are patent. MISCELLANEOUS: Mild scattered ground glass opacities in the upper lobes. IMPRESSION: 1. No large vessel occlusion in the head or neck. 2. Mild narrowing of the distal cervical left internal carotid artery due to calcifications. 3. Small caliber of the distal intradural right vertebral artery suspicious for stenosis. CT head without contrast 05/10/2021 FINDINGS: No intracranial hemorrhage, acute infarct, or mass lesion. Ventricles and sulci are mildly enlarged. There is mild periventricular white matter hypoattenuation. Cordova-white matter differentiation is maintained. The skull and scalp are intact. Paranasal sinuses and mastoid air cells are clear. Globes and orbits are intact. IMPRESSION: No acute intracranial abnormality. Chest x-ray 05/10/2021 FINDINGS: A frontal view of the chest is obtained. There is no infiltrate, pleural effusion or pneumothorax. The heart is normal in size. IMPRESSION: No acute pulmonary finding. Assessment/Plan Assessment/Plan Patient is a pleasant 65-year-old man who had right hemiparesis which has improved. I am relieved the CT scan of the head did not reveal an acute intracranial abnormality. CT angiogram of the head and neck did not reveal large vessel occlusion in the head or neck. There was mild narrowing of the distal cervical left internal carotid artery due to calcification. The right vertebral artery may have stenosis. He came in with uncontrolled hypertension so it is possible this represents a hypertensive encephalopathy. He will need an MRI of his head to better evaluate for stroke. We will get an echocardiogram to look for a cardioembolic source. We will need a fasting lipid profile. We will need gradual control of the blood pressure. He will need to be evaluated by the therapies if there are deficits. I will reevaluate. CAMERON CHAPPELL MD May 11, 2021 15:19
[2021-05-11] MEDS: ATORVASTATIN CALCIUM 40 MG TABLET. PO SCH (20:08)
[2021-05-11 21:29] LABS: BILIRUBIN,URINE NEGATIVE (NEG); CLARITY,URINE CLEAR; COLOR,URINE YELLOW; NITRITE,URINE NEGATIVE (NEG); PROTEIN,URINE NEGATIVE (NEG-TRACE)
[2021-05-11 21:42] LABS: BACTERIA,URINE 0 /HPF (0-FEW)
--- NOTE | 2021-05-12 01:08 | EKG ---
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
--- NOTE | 2021-05-12 01:08 | EKG ---
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
[2021-05-12 03:01] VITALS: BP 137/73
[2021-05-12 05:54] LABS: BASO # 0.1 x10^3/uL (0.0-0.2); BASO % 1 % (0-3); EOS # 0.2 x10^3/uL (0.0-0.7); EOS % 3 % (0-3); HEMOGLOBIN 14.4 g/dL (13.0-17.5); LYMPH # 1.5 x10^3/uL (1.0-4.8); LYMPH % 23 % (24-48); MEAN CORPUSCULAR HEMOGLOBIN 32 pg (25-35); MEAN CORPUSCULAR HGB CONC 34 g/dL (31-37); MEAN CORPUSCULAR VOLUME 94 fL (79-100); MONO # 0.6 x10^3/uL (0.0-1.1); MONO % 9 % (0-9); NEUT # 4.2 x10^3/uL (1.8-7.7); NEUT % 65 % (31-73); PLATELET COUNT 178 x10^3/uL (140-400); RED BLOOD COUNT 4.47 x10^6/uL (4.30-5.70); RED CELL DISTRIBUTION WIDTH 14.1 % (11.5-14.5); WHITE BLOOD COUNT 6.5 x10^3/uL (4.0-11.0)
[2021-05-12 06:16] LABS: CALCIUM 7.5 mg/dL (8.5-10.1); CREATININE 0.8 mg/dL (0.7-1.3); GFR 97.3; POTASSIUM 3.3 mmol/L (3.5-5.1)
[2021-05-12 07:00] VITALS: BP 169/78
[2021-05-12 08:15] LABS: CHOLESTEROL/HDL RATIO 4.2
--- NOTE | 2021-05-12 09:56 | PDOC ---
PROGRESS NOTES Date of Service DATE: 05/12/21 TIME: 09:52 Assessment Problems Medical Problems: (1) Right sided weakness Status: Acute (2) Weakness of right lower extremity Status: Acute Right hemiparesis related to hypertensive encephalopathy, symptoms have resolved. Favorable lipid profile Plan Await MRI brain If negative for stroke, pursue even more aggressive blood pressure control Aspirin Subjective No complaints Objective Vital Signs Date Time Temp Pulse Resp B/P (MAP) Pulse Ox O2 Delivery O2 Flow Rate FiO2 05/12/21 03:01 98.3 78 19 137/73 (94) 93 Room Air 98.3 Intake and Output 05/12/21 07:00 Intake Total 1280 ml Output Total 2200 ml Balance -920 ml Intake Oral 1280 ml Output Urine Total 2200 ml PHYSICAL EXAM Alert. Oriented to time, place and person. PERRL. EOMI. CN: no focal findings. Muscle tone: normal. Muscle strength: 5/5 DTR: 2+ Plantar reflex: Flexor Gait: not examined in bed. Sensory exam: no abnormal findings. No cerebellar signs elicited. Review of Relevant I have reviewed the following items pb (where applicable) has been applied. Labs Laboratory Tests Test 05/10/21 10:24 05/10/21 10:45 05/11/21 04:00 05/11/21 21:15 Glucose (Fingerstick) 105 mg/dL (70-99) White Blood Count 6.7 x10^3/uL (4.0-11.0) 6.1 x10^3/uL (4.0-11.0) Red Blood Count 4.80 x10^6/uL (4.30-5.70) 4.28 x10^6/uL (4.30-5.70) Hemoglobin 15.3 g/dL (13.0-17.5) 14.0 g/dL (13.0-17.5) Hematocrit 45.4 % (39.0-53.0) 40.7 % (39.0-53.0) Mean Corpuscular Volume 95 fL (79-100) 95 fL (79-100) Mean Corpuscular Hemoglobin 32 pg (25-35) 33 pg (25-35) Mean Corpuscular Hemoglobin Concent 34 g/dL (31-37) 34 g/dL (31-37) Red Cell Distribution Width 14.1 % (11.5-14.5) 14.4 % (11.5-14.5) Platelet Count 202 x10^3/uL (140-400) 175 x10^3/uL (140-400) Neutrophils (%) (Auto) 66 % (31-73) 65 % (31-73) Lymphocytes (%) (Auto) 23 % (24-48) 24 % (24-48) Monocytes (%) (Auto) 9 % (0-9) 9 % (0-9) Eosinophils (%) (Auto) 2 % (0-3) 3 % (0-3) Basophils (%) (Auto) 0 % (0-3) 1 % (0-3) Neutrophils # (Auto) 4.4 x10^3/uL (1.8-7.7) 4.0 x10^3/uL (1.8-7.7) Lymphocytes # (Auto) 1.6 x10^3/uL (1.0-4.8) 1.4 x10^3/uL (1.0-4.8) Monocytes # (Auto) 0.6 x10^3/uL (0.0-1.1) 0.5 x10^3/uL (0.0-1.1) Eosinophils # (Auto) 0.1 x10^3/uL (0.0-0.7) 0.2 x10^3/uL (0.0-0.7) Basophils # (Auto) 0.0 x10^3/uL (0.0-0.2) 0.0 x10^3/uL (0.0-0.2) Prothrombin Time 12.5 SEC (11.7-14.0) Prothromb Time International Ratio 0.9 (0.8-1.1) Activated Partial Thromboplast Time 43 SEC (24-38) Sodium Level 141 mmol/L (136-145) 140 mmol/L (136-145) Potassium Level 3.4 mmol/L (3.5-5.1) 3.3 mmol/L (3.5-5.1) Chloride Level 102 mmol/L (98-107) 102 mmol/L (98-107) Carbon Dioxide Level 27 mmol/L (21-32) 30 mmol/L (21-32) Anion Gap 12 (6-14) 8 (6-14) Blood Urea Nitrogen 7 mg/dL (8-26) 8 mg/dL (8-26) Creatinine 0.9 mg/dL (0.7-1.3) 0.8 mg/dL (0.7-1.3) Estimated GFR (Cockcroft-Gault) 85.0 97.3 BUN/Creatinine Ratio 8 (6-20) Glucose Level 103 mg/dL (70-99) 98 mg/dL (70-99) Calcium Level 7.6 mg/dL (8.5-10.1) 7.6 mg/dL (8.5-10.1) Phosphorus Level 2.7 mg/dL (2.6-4.7) 3.8 mg/dL (2.6-4.7) Magnesium Level 1.8 mg/dL (1.8-2.4) 1.9 mg/dL (1.8-2.4) Total Bilirubin 0.8 mg/dL (0.2-1.0) Aspartate Amino Transf (AST/SGOT) 26 U/L (15-37) Alanine Aminotransferase (ALT/SGPT) 30 U/L (16-63) Alkaline Phosphatase 84 U/L (46-116) Creatine Kinase 366 U/L (39-308) Troponin I High Sensitivity 13 ng/L (4-75) Total Protein 7.7 g/dL (6.4-8.2) Albumin 3.1 g/dL (3.4-5.0) Albumin/Globulin Ratio 0.7 (1.0-1.7) Urine Collection Type Unknown Urine Color Yellow Urine Clarity Clear Urine pH 7.0 (<5.0-8.0) Urine Specific [place] 1.020 (1.000-1.030) Urine Protein Negative mg/dL (NEG-TRACE) Urine Glucose (UA) Negative mg/dL (NEG) Urine Ketones (Stick) Negative mg/dL (NEG) Urine Blood Negative (NEG) Urine Nitrite Negative (NEG) Urine Bilirubin Negative (NEG) Urine Urobilinogen Dipstick 4.0 mg/dL (0.2 mg/dL) Urine Leukocyte Esterase Negative (NEG) Urine RBC 1-2 /HPF (0-2) Urine WBC 1-4 /HPF (0-4) Urine Squamous Epithelial Cells Few /LPF Urine Bacteria 0 /HPF (0-FEW) Test 05/12/21 05:30 White Blood Count 6.5 x10^3/uL (4.0-11.0) Red Blood Count 4.47 x10^6/uL (4.30-5.70) Hemoglobin 14.4 g/dL (13.0-17.5) Hematocrit 42.0 % (39.0-53.0) Mean Corpuscular Volume 94 fL (79-100) Mean Corpuscular Hemoglobin 32 pg (25-35) Mean Corpuscular Hemoglobin Concent 34 g/dL (31-37) Red Cell Distribution Width 14.1 % (11.5-14.5) Platelet Count 178 x10^3/uL (140-400) Neutrophils (%) (Auto) 65 % (31-73) Lymphocytes (%) (Auto) 23 % (24-48) Monocytes (%) (Auto) 9 % (0-9) Eosinophils (%) (Auto) 3 % (0-3) Basophils (%) (Auto) 1 % (0-3) Neutrophils # (Auto) 4.2 x10^3/uL (1.8-7.7) Lymphocytes # (Auto) 1.5 x10^3/uL (1.0-4.8) Monocytes # (Auto) 0.6 x10^3/uL (0.0-1.1) Eosinophils # (Auto) 0.2 x10^3/uL (0.0-0.7) Basophils # (Auto) 0.1 x10^3/uL (0.0-0.2) Sodium Level 142 mmol/L (136-145) Potassium Level 3.3 mmol/L (3.5-5.1) Chloride Level 106 mmol/L (98-107) Carbon Dioxide Level 28 mmol/L (21-32) Anion Gap 8 (6-14) Blood Urea Nitrogen 6 mg/dL (8-26) Creatinine 0.8 mg/dL (0.7-1.3) Estimated GFR (Cockcroft-Gault) 97.3 Glucose Level 99 mg/dL (70-99) Calcium Level 7.5 mg/dL (8.5-10.1) Magnesium Level 2.0 mg/dL (1.8-2.4) Triglycerides Level 99 mg/dL (0-150) Cholesterol Level 150 mg/dL (0-200) LDL Cholesterol, Calculated 94 mg/dL (0-100) VLDL Cholesterol, Calculated 20 mg/dL (0-40) Non-HDL Cholesterol Calculated 114 mg/dL (0-129) HDL Cholesterol 36 mg/dL (40-60) Cholesterol/HDL Ratio 4.2 Laboratory Tests Test 05/11/21 21:15 05/12/21 05:30 Urine Collection Type Unknown Urine Color Yellow Urine Clarity Clear Urine pH 7.0 (<5.0-8.0) Urine Specific [place] 1.020 (1.000-1.030) Urine Protein Negative mg/dL (NEG-TRACE) Urine Glucose (UA) Negative mg/dL (NEG) Urine Ketones (Stick) Negative mg/dL (NEG) Urine Blood Negative (NEG) Urine Nitrite Negative (NEG) Urine Bilirubin Negative (NEG) Urine Urobilinogen Dipstick 4.0 mg/dL (0.2 mg/dL) Urine Leukocyte Esterase Negative (NEG) Urine RBC 1-2 /HPF (0-2) Urine WBC 1-4 /HPF (0-4) Urine Squamous Epithelial Cells Few /LPF Urine Bacteria 0 /HPF (0-FEW) White Blood Count 6.5 x10^3/uL (4.0-11.0) Red Blood Count 4.47 x10^6/uL (4.30-5.70) Hemoglobin 14.4 g/dL (13.0-17.5) Hematocrit 42.0 % (39.0-53.0) Mean Corpuscular Volume 94 fL (79-100) Mean Corpuscular Hemoglobin 32 pg (25-35) Mean Corpuscular Hemoglobin Concent 34 g/dL (31-37) Red Cell Distribution Width 14.1 % (11.5-14.5) Platelet Count 178 x10^3/uL (140-400) Neutrophils (%) (Auto) 65 % (31-73) Lymphocytes (%) (Auto) 23 % (24-48) Monocytes (%) (Auto) 9 % (0-9) Eosinophils (%) (Auto) 3 % (0-3) Basophils (%) (Auto) 1 % (0-3) Neutrophils # (Auto) 4.2 x10^3/uL (1.8-7.7) Lymphocytes # (Auto) 1.5 x10^3/uL (1.0-4.8) Monocytes # (Auto) 0.6 x10^3/uL (0.0-1.1) Eosinophils # (Auto) 0.2 x10^3/uL (0.0-0.7) Basophils # (Auto) 0.1 x10^3/uL (0.0-0.2) Sodium Level 142 mmol/L (136-145) Potassium Level 3.3 mmol/L (3.5-5.1) Chloride Level 106 mmol/L (98-107) Carbon Dioxide Level 28 mmol/L (21-32) Anion Gap 8 (6-14) Blood Urea Nitrogen 6 mg/dL (8-26) Creatinine 0.8 mg/dL (0.7-1.3) Estimated GFR (Cockcroft-Gault) 97.3 Glucose Level 99 mg/dL (70-99) Calcium Level 7.5 mg/dL (8.5-10.1) Magnesium Level 2.0 mg/dL (1.8-2.4) Triglycerides Level 99 mg/dL (0-150) Cholesterol Level 150 mg/dL (0-200) LDL Cholesterol, Calculated 94 mg/dL (0-100) VLDL Cholesterol, Calculated 20 mg/dL (0-40) Non-HDL Cholesterol Calculated 114 mg/dL (0-129) HDL Cholesterol 36 mg/dL (40-60) Cholesterol/HDL Ratio 4.2 Medications Current Medications Aspirin (Ecotrin) 325 mg 1X ONCE PO Last administered on 05/10/21at 11:54; Start 05/10/21 at 11:00; Stop 05/10/21 at 11:01; Status DC Iohexol (Omnipaque 350 Mg/ml) 75 ml 1X ONCE IV Last administered on 05/10/21at 11:38; Start 05/10/21 at 12:00; Stop 05/10/21 at 12:01; Status DC Info (CONTRAST GIVEN -- Rx MONITORING) 1 each PRN DAILY PRN MC SEE COMMENTS; Start 05/10/21 at 11:45; Stop 05/12/21 at 11:44 Hydralazine HCl (Apresoline Inj) 10 mg PRN Q4HRS PRN IVP HYPERTENSION, 2nd CHOICE Last administered on 05/11/21at 09:34; Start 05/10/21 at 12:30 Labetalol HCl (Normodyne Iv Push) 20 mg PRN Q2HR PRN IVP HYPERTENSION, 1st CHOICE Last administered on 05/11/21at 10:54; Start 05/10/21 at 12:30 Sennosides (Senna) 17.2 mg PRN BID PRN PO CONSTIPATION; Start 05/10/21 at 12:30 Docusate Sodium (Colace) 100 mg PRN DAILY PRN PO HARD STOOLS; Start 05/10/21 at 12:30 Ondansetron HCl (Zofran) 4 mg PRN Q6HRS PRN IVP NAUSEA/VOMITING, 1st CHOICE; Start 05/10/21 at 12:30 Dextrose (Dextrose 50%-Water Syringe) 12.5 gm PRN Q15MIN PRN IV SEE COMMENTS; Start 05/10/21 at 12:30 Acetaminophen (Tylenol) 650 mg PRN Q4HRS PRN PO TEMP OVER 100.4F OR MILD PAIN; Start 05/10/21 at 12:30 Lorazepam (Ativan) 0.5 mg PRN Q6HRS PRN PO ANXIETY / AGITATION; Start 05/10/21 at 12:30 Lorazepam (Ativan Inj) 0.25 mg PRN Q4HRS PRN IV ANXIETY / AGITATION; Start 05/10/21 at 12:30 Prochlorperazine Edisylate (Compazine) 10 mg PRN Q6HRS PRN IV NAUSEA/VOMITING, 2nd CHOICE; Start 05/10/21 at 12:30 Diphenhydramine HCl (Benadryl) 25 mg PRN Q6HRS PRN IVP ITCHING; Start 05/10/21 at 12:30 Diphenhydramine HCl (Benadryl) 25 mg PRN Q6HRS PRN PO ITCHING; Start 05/10/21 at 12:30 Diphenhydramine HCl (Benadryl) 25 mg PRN QHS PRN PO INSOMNIA, 1st CHOICE; Start 05/10/21 at 12:30 Zolpidem Tartrate (Ambien) 2.5 mg PRN QHS PRN PO INSOMNIA, 2nd CHOICE; Start 05/10/21 at 12:30 Furosemide (Lasix) 40 mg 1X ONCE IVP Last administered on 05/11/21at 11:30; Start 05/11/21 at 11:30; Stop 05/11/21 at 11:31; Status DC Potassium Chloride (Klor-Con) 40 meq 1X ONCE PO Last administered on 05/11/21at 11:30; Start 05/11/21 at 11:30; Stop 05/11/21 at 11:31; Status DC Potassium Chloride (Klor-Con) 40 meq 1X ONCE PO Last administered on 05/11/21at 13:06; Start 05/11/21 at 13:30; Stop 05/11/21 at 13:31; Status DC Amlodipine Besylate (Norvasc) 10 mg DAILY PO Last administered on 05/11/21at 13:07; Start 05/11/21 at 12:00 Furosemide (Lasix) 40 mg DAILY PO ; Start 05/12/21 at 09:00 Potassium Chloride (Klor-Con) 20 meq DAILY PO ; Start 05/12/21 at 09:00 Atorvastatin Calcium (Lipitor) 40 mg QHS PO Last administered on 05/11/21at 20:08; Start 05/11/21 at 21:00 Aspirin (Rolly Aspirin) 325 mg DAILYWBKFT PO Last administered on 05/11/21at 13:07; Start 05/11/21 at 12:30 Enoxaparin Sodium (Lovenox 40mg Syringe) 40 mg Q24H SQ Last administered on 05/11/21at 14:05; Start 05/11/21 at 14:00 Vitals/I & O Vital Sign - Last 24 Hours 05/11/21 05/11/21 05/11/21 05/11/21 10:54 11:00 13:07 15:00 Temp 98.6 98.4 98.6 98.4 Pulse 88 74 71 72 Resp 20 15 B/P (MAP) 215/124 192/86 (121) 179/80 140/87 (104) Pulse Ox 96 94 O2 Delivery Room Air Room Air 05/11/21 05/11/21 05/11/21 05/12/21 19:00 20:00 23:30 03:01 Temp 98.5 98.0 98.3 98.5 98.0 98.3 Pulse 98 80 78 Resp 19 18 19 B/P (MAP) 150/81 (104) 141/77 (98) 137/73 (94) Pulse Ox 93 92 93 O2 Delivery Room Air Room Air Room Air Room Air Intake and Output 05/11/21 05/11/21 05/12/21 15:00 23:00 07:00 Intake Total 120 ml 920 ml 240 ml Output Total 1300 ml 400 ml 500 ml Balance -1180 ml 520 ml -[address] angiogram of the head and neck 05/10/2021 FINDINGS: CTA NECK: Arch/Proximal Great Vessels: The arch is normal in configuration. Mild calcified aortic atherosclerosis. There is mild narrowing of the left common carotid artery origin due to calcifications. Carotid Bifurcation/Cervical ICA: Mild calcifications at the carotid bulbs and bifurcations without significant stenosis. Approximately 40 percent narrowing of the distal cervical left internal carotid artery due to calcifications. Vertebral Arteries: Normal caliber and patent. CTA HEAD: Posterior Circulation: The distal right intradural vertebral artery is diminutive, likely due to stenosis. The intradural left vertebral artery is normal in caliber and patent. Basilar artery, superior cerebellar arteries, and posterior cerebral arteries are normal in caliber and patent. Anterior Circulation: Internal carotid arteries, middle cerebral arteries, and anterior cerebral arteries are normal in caliber and patent. There are calcifications in the intracranial internal carotid arteries without significant narrowing. Veins: Dural venous sinuses and jugular veins are patent. MISCELLANEOUS: Mild scattered ground glass opacities in the upper lobes. IMPRESSION: 1. No large vessel occlusion in the head or neck. 2. Mild narrowing of the distal cervical left internal carotid artery due to calcifications. 3. Small caliber of the distal intradural right vertebral artery suspicious for stenosis. CT head without contrast 05/10/2021 FINDINGS: No intracranial hemorrhage, acute infarct, or mass lesion. Ventricles and sulci are mildly enlarged. There is mild periventricular white matter hypoattenuation. [place]-white matter differentiation is maintained. The skull and scalp are intact. Paranasal sinuses and mastoid air cells are clear. Globes and orbits are intact. IMPRESSION: No acute intracranial abnormality. Justicifation of Admission Dx: Justifications for Admission: Justification of Admission Dx: N/A NOHEMY WILLS MD May 12, 2021 09:55
[2021-05-12] MEDS: FUROSEMIDE 40 MG TABLET. PO SCH (10:08)
[2021-05-12] MEDS: ASPIRIN 325 MG TABLET PO SCH (10:08)
[2021-05-12] MEDS: POTASSIUM CHLORIDE 20 MEQ TABLET.ER. PO SCH (10:08)
[2021-05-12 11:00] VITALS: BP 169/102
[2021-05-12] MEDS ORDERED: POTASSIUM CHLORIDE 20 MEQ TABLET.ER. PO ONE (11:30)
[2021-05-12] MEDS ORDERED: LISINOPRIL 5 MG TABLET. PO SCH (11:30)
--- NOTE | 2021-05-12 12:37 | RAD ---
EXAM: MRI BRAIN WO 05/12/2021 10:53 AM CLINICAL INDICATION: Stroke COMPARISON: CTA head and neck and CT head 05/10/2021 TECHNIQUE: Multiplanar multisequence MR images of the brain without contrast FINDINGS: Small acute infarct in the left thalamus and posterior limb of the left internal capsule m easuring 9 x 5 mm. There is mild associated T2 hyperintense signal. No intracranial hemorrhage or ext ra-axial fluid collection. Mild scattered deep and periventricular T2 hyperintense white matter signa l elsewhere, nonspecific. Ventricles and sulci are mildly enlarged. No intracranial mass. There is mi ld mucosal thickening in inferior maxillary sinuses and ethmoid air cells. Scattered fluid in the mas toid air cells, greater on the right. Globes and orbits are intact. Skull and scalp are unremarkable. IMPRESSION: 1. Small acute infarct in the left thalamus and posterior limb of the left internal capsule. 2. No intracranial hemorrhage. 3. Mild volume loss and mild white matter disease. FOR INTERNAL CODING PURPOSES Critical result: Findings discussed with nurse Cao at 05/12/2021 12:30 PM. RESULT CODE: (C) Electronically signed by: Irais East MD (05/12/2021 12:35 PM) [id number]
--- NOTE | 2021-05-12 14:19 | PDOC ---
[facility] PROGRESS NOTE Date of Service DOS: DATE: 05/12/21 TIME: 13:42 Chief Complaint Chief Complaint acute stroke, MRI showed Small acute infarct in the left thalamus and posterior limb of the left internal capsule. mild white matter disease. Hypertensive urgency Noncompliance meds or f/u for htn Probable metabolic syndrome Hypokalemia Obesity, BMI 36 Tobacco misuse History of Present Illness History of Present Illness 05/12/2021 Patient seen and examined in the ICU His stroke symptoms seem to be resolving blood pressure still running 215/100 I had the nurse give some IV Lasix and potassium and I ordered p.o. [facility] Chart reviewed Vitals/I&O Vitals/I&O: Vital Signs Date Time Temp Pulse Resp B/P (MAP) Pulse Ox O2 Delivery O2 Flow Rate FiO2 05/12/21 11:00 98.7 84 18 169/102 (124) 94 Room Air 98.7 I & O 05/11/21 05/11/21 05/12/21 15:00 23:00 07:00 Intake Total 120 ml 920 ml 240 ml Output Total 1300 ml 400 ml 500 ml Balance -1180 ml 520 ml -260 ml Physical Exam General: Alert Heart: Regular rate, Normal S2 Abdomen: Normal bowel sounds, Other (Obese) Extremities: No clubbing Skin: No rashes Labs Labs: Laboratory Tests Test 05/11/21 21:15 05/12/21 05:30 Urine Collection Type Unknown Urine Color Yellow Urine Clarity Clear Urine pH 7.0 (<5.0-8.0) Urine Specific [place] 1.020 (1.000-1.030) Urine Protein Negative mg/dL (NEG-TRACE) Urine Glucose (UA) Negative mg/dL (NEG) Urine Ketones (Stick) Negative mg/dL (NEG) Urine Blood Negative (NEG) Urine Nitrite Negative (NEG) Urine Bilirubin Negative (NEG) Urine Urobilinogen Dipstick 4.0 mg/dL (0.2 mg/dL) Urine Leukocyte Esterase Negative (NEG) Urine RBC 1-2 /HPF (0-2) Urine WBC 1-4 /HPF (0-4) Urine Squamous Epithelial Cells Few /LPF Urine Bacteria 0 /HPF (0-FEW) White Blood Count 6.5 x10^3/uL (4.0-11.0) Red Blood Count 4.47 x10^6/uL (4.30-5.70) Hemoglobin 14.4 g/dL (13.0-17.5) Hematocrit 42.0 % (39.0-53.0) Mean Corpuscular Volume 94 fL (79-100) Mean Corpuscular Hemoglobin 32 pg (25-35) Mean Corpuscular Hemoglobin Concent 34 g/dL (31-37) Red Cell Distribution Width 14.1 % (11.5-14.5) Platelet Count 178 x10^3/uL (140-400) Neutrophils (%) (Auto) 65 % (31-73) Lymphocytes (%) (Auto) 23 % (24-48) Monocytes (%) (Auto) 9 % (0-9) Eosinophils (%) (Auto) 3 % (0-3) Basophils (%) (Auto) 1 % (0-3) Neutrophils # (Auto) 4.2 x10^3/uL (1.8-7.7) Lymphocytes # (Auto) 1.5 x10^3/uL (1.0-4.8) Monocytes # (Auto) 0.6 x10^3/uL (0.0-1.1) Eosinophils # (Auto) 0.2 x10^3/uL (0.0-0.7) Basophils # (Auto) 0.1 x10^3/uL (0.0-0.2) Sodium Level 142 mmol/L (136-145) Potassium Level 3.3 mmol/L (3.5-5.1) Chloride Level 106 mmol/L (98-107) Carbon Dioxide Level 28 mmol/L (21-32) Anion Gap 8 (6-14) Blood Urea Nitrogen 6 mg/dL (8-26) Creatinine 0.8 mg/dL (0.7-1.3) Estimated GFR (Cockcroft-Gault) 97.3 Glucose Level 99 mg/dL (70-99) Calcium Level 7.5 mg/dL (8.5-10.1) Magnesium Level 2.0 mg/dL (1.8-2.4) Triglycerides Level 99 mg/dL (0-150) Cholesterol Level 150 mg/dL (0-200) LDL Cholesterol, Calculated 94 mg/dL (0-100) VLDL Cholesterol, Calculated 20 mg/dL (0-40) Non-HDL Cholesterol Calculated 114 mg/dL (0-129) HDL Cholesterol 36 mg/dL (40-60) Cholesterol/HDL Ratio 4.2 Assessment and Plan Assessmemt and Plan Problems Medical Problems: (1) Right sided weakness Status: Acute (2) Weakness of right lower extremity Status: Acute Comment Review of Relevant I have reviewed the following items pb (where applicable) has been applied. Medications: Current Medications Medications (Trade) Dose Ordered Sig/Bryant Route PRN Reason Start Time Stop Time Status Last Admin Dose Admin Furosemide (Lasix) 40 mg DAILY PO 05/12/21 09:00 05/12/21 10:08 Potassium Chloride (Klor-Con) 20 meq DAILY PO 05/12/21 09:00 05/12/21 10:08 Atorvastatin Calcium (Lipitor) 40 mg QHS PO 05/11/21 21:00 05/11/21 20:08 Enoxaparin Sodium (Lovenox 40mg Syringe) 40 mg Q24H SQ 05/11/21 14:00 05/11/21 14:05 Potassium Chloride (Klor-Con) 40 meq 1X ONCE PO 05/12/21 11:30 05/12/21 11:36 DC 05/12/21 11:53 Justifications for Admission Other Justification TIA rule out stroke MAURO ORTEGA MD May 12, 2021 14:19
[2021-05-12] MEDS: ENOXAPARIN 40 MG/0.4 ML SYRINGE. SQ SCH (14:28)
[2021-05-12 15:27] VITALS: BP 144/76
--- NOTE | 2021-05-12 16:01 | NUR ---
SS following for discharge planning. SS reviewed pt chart and discussed with pt RN. Pt is from home with spouse and is currently on room air. PO diet. PT/OT recommended acute rehabilitation. Pt transferred to room 648. SS will continue to follow for discharge planning.
--- NOTE | 2021-05-12 16:11 | CARD ---
MR#: [id number] Date of Study: 05/12/2021 Ordering Physician: CAMERON CHAPPELL, Referring Physician: CAMERON CHAPPELL Tech: Debra Garcia [facility] APPROVED REPORT EXAM: Two-dimensional and M-mode echocardiogram with Doppler and color Doppler. Other Information Quality : AverageHR: 80bpm Rhythm : NSR INDICATION CVA/TIA RISK FACTORS Hypertension Obesity Hyperlipidemia 2D DIMENSIONS RVDd3.4 (2.9-3.5cm)Left Atrium(2D)3.6 (1.6-4.0cm) IVSd1.2 (0.7-1.1cm)Aortic Root(2D)3.1 (2.0-3.7cm) LVDd4.7 (3.9-5.9cm)LVOT Diameter2.2 (1.8-2.4cm) PWd1.2 (0.7-1.1cm)LVDs3.0 (2.5-4.0cm) FS (%) 36.1 %SV68.5 ml LVEF(%)65.7 (>50%) Aortic Valve AoV Peak Nawaf.138.8cm/sAoV VTI31.6cm AO Peak GR.7.7mmHgLVOT Peak Nawaf.134.6cm/s AO Mean GR.4mmHgAVA (VMAX)3.72cm2 Mitral Valve MV E Gsudyvwy84.7cm/sMV DECEL [id number] MV A Gxcarhzm34.2cm/sE/A Ratio1.0 Pulmonary Valve PV Peak Wqwmlgwn439.8cm/s Tricuspid Valve TR P. [id number]/sTR Peak Gr.32mmHg LEFT VENTRICLE The left ventricle is normal size. There is mild concentric left ventricular hypertrophy. The left ve ntricular systolic function is normal. Estimated ejection fraction 65%. There is normal LV segmental wall motion. Transmitral Doppler flow pattern is Grade II-pseudonormal filling dynamics. RIGHT VENTRICLE The right ventricle is normal size. There is normal right ventricular wall thickness. The right ventr icular systolic function is normal. ATRIA The left atrium size is normal. The right atrium size is normal. The interatrial septum is intact wit h no evidence for an atrial septal defect or patent foramen ovale as noted on 2-D or Doppler imaging. AORTIC VALVE The aortic valve is normal in structure and function. Doppler and Color Flow revealed no significant aortic regurgitation. There is no significant aortic valvular stenosis. MITRAL VALVE The mitral valve is normal in structure and function. There is no evidence of mitral valve prolapse. There is no mitral valve stenosis. Doppler and Color Flow revealed no mitral valve regurgitation note d. TRICUSPID VALVE The tricuspid valve is normal in structure and function. Doppler and Color Flow revealed trace tricus pid regurgitation. Estimated PAP 35 mmHg. There is no tricuspid valve stenosis. PULMONIC VALVE The pulmonary valve is normal in structure and function. Doppler and Color Flow revealed no pulmonic valvular regurgitation. GREAT VESSELS The aortic root is normal in size. The ascending aorta is normal in size. The IVC is normal in size a nd collapses >50% with inspiration. PERICARDIAL EFFUSION There is no evidence of significant pericardial effusion. Critical Notification Critical Value: No <Conclusion> The left ventricular systolic function is normal. Estimated ejection fraction 65%. There is normal LV segmental wall motion. Transmitral Doppler flow pattern is Grade II-pseudonormal filling dynamics. Trace tricuspid regurgitation. Estimated PAP 35 mmHg. There is no evidence of significant pericardial effusion. Bubble study negative for PFO/ASD. Signed by : Joe Perdue, Electronically Approved : 05/12/2021 16:11:00
[2021-05-12 19:50] VITALS: BP 174/74
[2021-05-12] MEDS: ATORVASTATIN CALCIUM 40 MG TABLET. PO SCH (21:13)
[2021-05-12 22:58] VITALS: BP 149/71
[2021-05-13 02:57] VITALS: BP 180/73
[2021-05-13 06:06] LABS: CALCIUM 7.6 mg/dL (8.5-10.1); CREATININE 0.8 mg/dL (0.7-1.3); GFR 97.3; MAGNESIUM 2.1 mg/dL (1.8-2.4); POTASSIUM 3.4 mmol/L (3.5-5.1)
[2021-05-13 06:23] LABS: BASO % 1 % (0-3); EOS # 0.2 x10^3/uL (0.0-0.7); EOS % 3 % (0-3); HEMATOCRIT 42.7 % (39.0-53.0); HEMOGLOBIN 14.6 g/dL (13.0-17.5); LYMPH # 1.3 x10^3/uL (1.0-4.8); LYMPH % 20 % (24-48); MEAN CORPUSCULAR HEMOGLOBIN 33 pg (25-35); MEAN CORPUSCULAR HGB CONC 34 g/dL (31-37); MEAN CORPUSCULAR VOLUME 96 fL (79-100); MONO # 0.5 x10^3/uL (0.0-1.1); MONO % 8 % (0-9); NEUT # 4.5 x10^3/uL (1.8-7.7); NEUT % 69 % (31-73); PLATELET COUNT 197 x10^3/uL (140-400); RED BLOOD COUNT 4.46 x10^6/uL (4.30-5.70); RED CELL DISTRIBUTION WIDTH 13.9 % (11.5-14.5); WHITE BLOOD COUNT 6.5 x10^3/uL (4.0-11.0)
[2021-05-13 07:00] VITALS: BP 181/54
[2021-05-13] MEDS ORDERED: LISINOPRIL 5 MG TABLET. PO SCH (09:00)
[2021-05-13] MEDS: ASPIRIN 325 MG TABLET PO SCH (09:35)
[2021-05-13] MEDS: POTASSIUM CHLORIDE 20 MEQ TABLET.ER. PO SCH (09:36)
[2021-05-13] MEDS: FUROSEMIDE 40 MG TABLET. PO SCH (09:36)
[2021-05-13] MEDS ORDERED: POTASSIUM CHLORIDE 20 MEQ TABLET.ER. PO ONE (10:30)
[2021-05-13] MEDS ORDERED: LISINOPRIL 10 MG TABLET PO ONE (10:30)
--- NOTE | 2021-05-13 10:37 | PDOC ---
[employer] PROGRESS NOTE Date of Service DOS: DATE: 05/13/21 TIME: 10:25 Chief Complaint Chief Complaint acute stroke, MRI showed Small acute infarct in the left thalamus and posterior limb of the left internal capsule. mild white matter disease. Hypertensive urgency Noncompliance meds or f/u for htn Probable metabolic syndrome Hypokalemia Obesity, BMI 36 Tobacco misuse History of Present Illness History of Present Illness 05/12: Seen and examined in the ICU. His stroke symptoms seem to be resolving blood pressure still running 215/100. IV Lasix and potassium and ordered p.o. Norvasc, lisinopril 05/13: Right-sided weakness no speech deficits today. Systolic blood pressure still in the 180s and 190s today after his Norvasc 10 mg and lisinopril 5 mg. Will increase lisinopril to 20 mg and monitor blood pressure if systolics less than 150 on his usual antihypertensive regimen may be stable for discharge on aspirin and high intensity statin. 8 minutes smoking cessation counseling undertaken. Vitals/I&O Vitals/I&O: Vital Signs Date Time Temp Pulse Resp B/P (MAP) Pulse Ox O2 Delivery O2 Flow Rate FiO2 05/13/21 09:35 95 181/54 05/13/21 07:00 98.7 19 96 Room Air 98.7 I & O 05/12/21 05/12/21 05/13/21 15:00 23:00 07:00 Intake Total 240 ml 0 ml Output Total 675 ml 300 ml Balance -675 ml -60 ml 0 ml Physical Exam General: Alert Heart: Regular rate, Normal S2 Abdomen: Normal bowel sounds, Other (Obese) Extremities: No clubbing Skin: No rashes Labs Labs: Laboratory Tests Test 05/13/21 04:20 White Blood Count 6.5 x10^3/uL (4.0-11.0) Red Blood Count 4.46 x10^6/uL (4.30-5.70) Hemoglobin 14.6 g/dL (13.0-17.5) Hematocrit 42.7 % (39.0-53.0) Mean Corpuscular Volume 96 fL (79-100) Mean Corpuscular Hemoglobin 33 pg (25-35) Mean Corpuscular Hemoglobin Concent 34 g/dL (31-37) Red Cell Distribution Width 13.9 % (11.5-14.5) Platelet Count 197 x10^3/uL (140-400) Neutrophils (%) (Auto) 69 % (31-73) Lymphocytes (%) (Auto) 20 % (24-48) Monocytes (%) (Auto) 8 % (0-9) Eosinophils (%) (Auto) 3 % (0-3) Basophils (%) (Auto) 1 % (0-3) Neutrophils # (Auto) 4.5 x10^3/uL (1.8-7.7) Lymphocytes # (Auto) 1.3 x10^3/uL (1.0-4.8) Monocytes # (Auto) 0.5 x10^3/uL (0.0-1.1) Eosinophils # (Auto) 0.2 x10^3/uL (0.0-0.7) Basophils # (Auto) 0.0 x10^3/uL (0.0-0.2) Sodium Level 142 mmol/L (136-145) Potassium Level 3.4 mmol/L (3.5-5.1) Chloride Level 107 mmol/L (98-107) Carbon Dioxide Level 25 mmol/L (21-32) Anion Gap 10 (6-14) Blood Urea Nitrogen 9 mg/dL (8-26) Creatinine 0.8 mg/dL (0.7-1.3) Estimated GFR (Cockcroft-Gault) 97.3 Glucose Level 96 mg/dL (70-99) Calcium Level 7.6 mg/dL (8.5-10.1) Magnesium Level 2.1 mg/dL (1.8-2.4) Assessment and Plan Assessmemt and Plan Problems Medical Problems: (1) Right sided weakness Status: Acute (2) Weakness of right lower extremity Status: Acute Comment Review of Relevant I have reviewed the following items pb (where applicable) has been applied. Medications: Current Medications Medications (Trade) Dose Ordered Sig/Bryant Route PRN Reason Start Time Stop Time Status Last Admin Dose Admin Potassium Chloride (Klor-Con) 40 meq 1X ONCE PO 05/12/21 11:30 05/12/21 11:36 DC 05/12/21 11:53 Lisinopril (Prinivil) 5 mg DAILY PO 05/13/21 09:00 05/13/21 09:35 Justifications for Admission Other Justification TIA rule out stroke BRANDON PHILLIPS MD May 13, 2021 10:37
[2021-05-13 11:00] VITALS: BP 159/79
--- NOTE | 2021-05-13 11:07 | NUR ---
SS following up with discharge planning. SS reviewed pt chart and discussed with pt RN. Pt is currently on room air. PO diet. PT/OT recommended acute rehabilitation. SS met with pt to discuss discharge planning and acute rehabilitation. Pt declining acute rehabilitation at this time stating that he will discharge to home with his spouse. Home Healthcare discussed and pt declined. Pt reported that he plans to quit smoking once home. Pt asking for discharge today and stated that his spouse will transport him to home. Physician notified. SS will continue to follow for discharge planning.
[2021-05-13 12:45] VITALS: BP 136/68
--- NOTE | 2021-05-13 12:48 | NUR ---
Patient has related in conversation that he will no longer be smoking cigarettes. Patient has indicated that he will be following up with physicians as recommended.
--- NOTE | 2021-05-13 12:50 | PDOC ---
PROGRESS NOTES Date of Service DATE: 05/13/21 TIME: 12:47 Assessment Problems Medical Problems: (1) Right sided weakness Status: Acute (2) Weakness of right lower extremity Status: Acute Small acute infarct in the left thalamus and posterior limb of the left internal capsule Hypertensive encephalopathy, blood pressures were running high this morning, better in the afternoon (I saw the patient in the morning) Favorable lipid profile Plan Aspirin Home if blood pressure stable Lipids normal, hold on statin Does not appear to need acute rehab Follow-up with a primary care physician, I recommended family medical group Follow-up with me as needed Okay for discharge Thank you for letting me help with the patient's care. Objective Vital Signs Date Time Temp Pulse Resp B/P (MAP) Pulse Ox O2 Delivery O2 Flow Rate FiO2 05/13/21 12:45 96 20 136/68 (90) 05/13/21 11:00 98.0 94 Room Air 98.0 Intake and Output 05/13/21 07:00 Intake Total 240 ml Output Total 975 ml Balance -735 ml Intake Oral 240 ml Output Urine Total 975 ml PHYSICAL EXAM Alert. Oriented to time, place and person. PERRL. EOMI. CN: no focal findings. Muscle tone: normal. Muscle strength: 5/5 DTR: 2+ Plantar reflex: Flexor Gait: A little unsteady Sensory exam: no abnormal findings. No cerebellar signs elicited. Review of Relevant I have reviewed the following items pb (where applicable) has been applied. Labs Laboratory Tests Test 05/11/21 21:15 05/12/21 05:30 05/13/21 04:20 Urine Collection Type Unknown Urine Color Yellow Urine Clarity Clear Urine pH 7.0 (<5.0-8.0) Urine Specific [place] 1.020 (1.000-1.030) Urine Protein Negative mg/dL (NEG-TRACE) Urine Glucose (UA) Negative mg/dL (NEG) Urine Ketones (Stick) Negative mg/dL (NEG) Urine Blood Negative (NEG) Urine Nitrite Negative (NEG) Urine Bilirubin Negative (NEG) Urine Urobilinogen Dipstick 4.0 mg/dL (0.2 mg/dL) Urine Leukocyte Esterase Negative (NEG) Urine RBC 1-2 /HPF (0-2) Urine WBC 1-4 /HPF (0-4) Urine Squamous Epithelial Cells Few /LPF Urine Bacteria 0 /HPF (0-FEW) White Blood Count 6.5 x10^3/uL (4.0-11.0) 6.5 x10^3/uL (4.0-11.0) Red Blood Count 4.47 x10^6/uL (4.30-5.70) 4.46 x10^6/uL (4.30-5.70) Hemoglobin 14.4 g/dL (13.0-17.5) 14.6 g/dL (13.0-17.5) Hematocrit 42.0 % (39.0-53.0) 42.7 % (39.0-53.0) Mean Corpuscular Volume 94 fL (79-100) 96 fL (79-100) Mean Corpuscular Hemoglobin 32 pg (25-35) 33 pg (25-35) Mean Corpuscular Hemoglobin Concent 34 g/dL (31-37) 34 g/dL (31-37) Red Cell Distribution Width 14.1 % (11.5-14.5) 13.9 % (11.5-14.5) Platelet Count 178 x10^3/uL (140-400) 197 x10^3/uL (140-400) Neutrophils (%) (Auto) 65 % (31-73) 69 % (31-73) Lymphocytes (%) (Auto) 23 % (24-48) 20 % (24-48) Monocytes (%) (Auto) 9 % (0-9) 8 % (0-9) Eosinophils (%) (Auto) 3 % (0-3) 3 % (0-3) Basophils (%) (Auto) 1 % (0-3) 1 % (0-3) Neutrophils # (Auto) 4.2 x10^3/uL (1.8-7.7) 4.5 x10^3/uL (1.8-7.7) Lymphocytes # (Auto) 1.5 x10^3/uL (1.0-4.8) 1.3 x10^3/uL (1.0-4.8) Monocytes # (Auto) 0.6 x10^3/uL (0.0-1.1) 0.5 x10^3/uL (0.0-1.1) Eosinophils # (Auto) 0.2 x10^3/uL (0.0-0.7) 0.2 x10^3/uL (0.0-0.7) Basophils # (Auto) 0.1 x10^3/uL (0.0-0.2) 0.0 x10^3/uL (0.0-0.2) Sodium Level 142 mmol/L (136-145) 142 mmol/L (136-145) Potassium Level 3.3 mmol/L (3.5-5.1) 3.4 mmol/L (3.5-5.1) Chloride Level 106 mmol/L (98-107) 107 mmol/L (98-107) Carbon Dioxide Level 28 mmol/L (21-32) 25 mmol/L (21-32) Anion Gap 8 (6-14) 10 (6-14) Blood Urea Nitrogen 6 mg/dL (8-26) 9 mg/dL (8-26) Creatinine 0.8 mg/dL (0.7-1.3) 0.8 mg/dL (0.7-1.3) Estimated GFR (Cockcroft-Gault) 97.3 97.3 Glucose Level 99 mg/dL (70-99) 96 mg/dL (70-99) Calcium Level 7.5 mg/dL (8.5-10.1) 7.6 mg/dL (8.5-10.1) Magnesium Level 2.0 mg/dL (1.8-2.4) 2.1 mg/dL (1.8-2.4) Triglycerides Level 99 mg/dL (0-150) Cholesterol Level 150 mg/dL (0-200) LDL Cholesterol, Calculated 94 mg/dL (0-100) VLDL Cholesterol, Calculated 20 mg/dL (0-40) Non-HDL Cholesterol Calculated 114 mg/dL (0-129) HDL Cholesterol 36 mg/dL (40-60) Cholesterol/HDL Ratio 4.2 Laboratory Tests Test 05/13/21 04:20 White Blood Count 6.5 x10^3/uL (4.0-11.0) Red Blood Count 4.46 x10^6/uL (4.30-5.70) Hemoglobin 14.6 g/dL (13.0-17.5) Hematocrit 42.7 % (39.0-53.0) Mean Corpuscular Volume 96 fL (79-100) Mean Corpuscular Hemoglobin 33 pg (25-35) Mean Corpuscular Hemoglobin Concent 34 g/dL (31-37) Red Cell Distribution Width 13.9 % (11.5-14.5) Platelet Count 197 x10^3/uL (140-400) Neutrophils (%) (Auto) 69 % (31-73) Lymphocytes (%) (Auto) 20 % (24-48) Monocytes (%) (Auto) 8 % (0-9) Eosinophils (%) (Auto) 3 % (0-3) Basophils (%) (Auto) 1 % (0-3) Neutrophils # (Auto) 4.5 x10^3/uL (1.8-7.7) Lymphocytes # (Auto) 1.3 x10^3/uL (1.0-4.8) Monocytes # (Auto) 0.5 x10^3/uL (0.0-1.1) Eosinophils # (Auto) 0.2 x10^3/uL (0.0-0.7) Basophils # (Auto) 0.0 x10^3/uL (0.0-0.2) Sodium Level 142 mmol/L (136-145) Potassium Level 3.4 mmol/L (3.5-5.1) Chloride Level 107 mmol/L (98-107) Carbon Dioxide Level 25 mmol/L (21-32) Anion Gap 10 (6-14) Blood Urea Nitrogen 9 mg/dL (8-26) Creatinine 0.8 mg/dL (0.7-1.3) Estimated GFR (Cockcroft-Gault) 97.3 Glucose Level 96 mg/dL (70-99) Calcium Level 7.6 mg/dL (8.5-10.1) Magnesium Level 2.1 mg/dL (1.8-2.4) Medications Current Medications Aspirin (Ecotrin) 325 mg 1X ONCE PO Last administered on 05/10/21at 11:54; Start 05/10/21 at 11:00; Stop 05/10/21 at 11:01; Status DC Iohexol (Omnipaque 350 Mg/ml) 75 ml 1X ONCE IV Last administered on 05/10/21at 11:38; Start 05/10/21 at 12:00; Stop 05/10/21 at 12:01; Status DC Info (CONTRAST GIVEN -- Rx MONITORING) 1 each PRN DAILY PRN MC SEE COMMENTS; Start 05/10/21 at 11:45; Stop 05/12/21 at 11:44; Status DC Hydralazine HCl (Apresoline Inj) 10 mg PRN Q4HRS PRN IVP HYPERTENSION, 2nd CHOICE Last administered on 05/11/21at 09:34; Start 05/10/21 at 12:30 Labetalol HCl (Normodyne Iv Push) 20 mg PRN Q2HR PRN IVP HYPERTENSION, 1st CHOICE Last administered on 05/11/21at 10:54; Start 05/10/21 at 12:30 Sennosides (Senna) 17.2 mg PRN BID PRN PO CONSTIPATION; Start 05/10/21 at 12:30 Docusate Sodium (Colace) 100 mg PRN DAILY PRN PO HARD STOOLS; Start 05/10/21 at 12:30 Ondansetron HCl (Zofran) 4 mg PRN Q6HRS PRN IVP NAUSEA/VOMITING, 1st CHOICE; Start 05/10/21 at 12:30 Dextrose (Dextrose 50%-Water Syringe) 12.5 gm PRN Q15MIN PRN IV SEE COMMENTS; Start 05/10/21 at 12:30 Acetaminophen (Tylenol) 650 mg PRN Q4HRS PRN PO TEMP OVER 100.4F OR MILD PAIN; Start 05/10/21 at 12:30 Lorazepam (Ativan) 0.5 mg PRN Q6HRS PRN PO ANXIETY / AGITATION; Start 05/10/21 at 12:30 Lorazepam (Ativan Inj) 0.25 mg PRN Q4HRS PRN IV ANXIETY / AGITATION; Start 05/10/21 at 12:30 Prochlorperazine Edisylate (Compazine) 10 mg PRN Q6HRS PRN IV NAUSEA/VOMITING, 2nd CHOICE; Start 05/10/21 at 12:30 Diphenhydramine HCl (Benadryl) 25 mg PRN Q6HRS PRN IVP ITCHING; Start 05/10/21 at 12:30 Diphenhydramine HCl (Benadryl) 25 mg PRN Q6HRS PRN PO ITCHING; Start 05/10/21 at 12:30 Diphenhydramine HCl (Benadryl) 25 mg PRN QHS PRN PO INSOMNIA, 1st CHOICE; Start 05/10/21 at 12:30 Zolpidem Tartrate (Ambien) 2.5 mg PRN QHS PRN PO INSOMNIA, 2nd CHOICE; Start 05/10/21 at 12:30 Furosemide (Lasix) 40 mg 1X ONCE IVP Last administered on 05/11/21at 11:30; Start 05/11/21 at 11:30; Stop 05/11/21 at 11:31; Status DC Potassium Chloride (Klor-Con) 40 meq 1X ONCE PO Last administered on 05/11/21at 11:30; Start 05/11/21 at 11:30; Stop 05/11/21 at 11:31; Status DC Potassium Chloride (Klor-Con) 40 meq 1X ONCE PO Last administered on 05/11/21at 13:06; Start 05/11/21 at 13:30; Stop 05/11/21 at 13:31; Status DC Amlodipine Besylate (Norvasc) 10 mg DAILY PO Last administered on 05/13/21at 09:35; Start 05/11/21 at 12:00 Furosemide (Lasix) 40 mg DAILY PO Last administered on 05/13/21at 09:36; Start 05/12/21 at 09:00 Potassium Chloride (Klor-Con) 20 meq DAILY PO Last administered on 05/13/21at 09:36; Start 05/12/21 at 09:00 Atorvastatin Calcium (Lipitor) 40 mg QHS PO Last administered on 05/12/21at 21:13; Start 05/11/21 at 21:00 Aspirin (Rolly Aspirin) 325 mg DAILYWBKFT PO Last administered on 05/13/21at 09:35; Start 05/11/21 at 12:30 Enoxaparin Sodium (Lovenox 40mg Syringe) 40 mg Q24H SQ Last administered on 05/12/21at 14:28; Start 05/11/21 at 14:00 Potassium Chloride (Klor-Con) 40 meq 1X ONCE PO Last administered on 05/12/21at 11:53; Start 05/12/21 at 11:30; Stop 05/12/21 at 11:36; Status DC Lisinopril (Prinivil) 5 mg DAILY PO ; Start 05/12/21 at 11:30; Stop 05/12/21 at 12:15; Status DC Lisinopril (Prinivil) 5 mg DAILY PO Last administered on 05/13/21at 09:35; Start 05/13/21 at 09:00 Potassium Chloride (Klor-Con) 40 meq 1X ONCE PO Last administered on 05/13/21at 11:36; Start 05/13/21 at 10:30; Stop 05/13/21 at 10:32; Status DC Lisinopril (Prinivil) 15 mg 1X ONCE PO Last administered on 05/13/21at 11:44; Start 05/13/21 at 10:30; Stop 05/13/21 at 10:37; Status DC Vitals/I & O Vital Sign - Last 24 Hours 05/12/21 05/12/21 05/12/21 05/12/21 15:17 15:27 19:50 20:10 Temp 98.7 97.7 98.7 97.7 Pulse 88 90 Resp 19 16 B/P (MAP) 144/76 (98) 174/74 (107) Pulse Ox 94 95 O2 Delivery Room Air Room Air Room Air Room Air 05/12/21 05/13/21 05/13/21 05/13/21 22:58 02:57 07:00 08:00 Temp 98.2 98.0 98.7 98.2 98.0 98.7 Pulse 74 79 95 Resp 16 18 19 B/P (MAP) 149/71 (97) 180/73 (108) 181/54 (96) Pulse Ox 97 98 96 O2 Delivery Room Air Room Air Room Air Room Air 05/13/21 05/13/21 05/13/21 05/13/21 09:35 09:35 11:00 11:44 Temp 98.0 98.0 Pulse 95 95 98 106 Resp 18 B/P (MAP) 181/54 181/54 159/79 (105) 159/79 Pulse Ox 94 O2 Delivery Room Air 05/13/21 12:45 Pulse 96 Resp 20 B/P (MAP) 136/68 (90) Intake and Output 05/12/21 05/12/21 05/13/21 15:00 23:00 07:00 Intake Total 240 ml 0 ml Output Total 675 ml 300 ml Balance -675 ml -60 ml 0 ml Images MRI BRAIN WO 05/12/2021 10:53 AM CLINICAL INDICATION: Stroke COMPARISON: CTA head and neck and CT head 05/10/2021 TECHNIQUE: Multiplanar multisequence MR images of the brain without contrast FINDINGS: Small acute infarct in the left thalamus and posterior limb of the left internal capsule measuring 9 x 5 mm. There is mild associated T2 hyperintense signal. No intracranial hemorrhage or extra-axial fluid collection. Mild scattered deep and periventricular T2 hyperintense white matter signal elsewhere, nonspecific. Ventricles and sulci are mildly enlarged. No intracranial mass. There is mild mucosal thickening in inferior maxillary sinuses and ethmoid air cells. Scattered fluid in the mastoid air cells, greater on the right. Globes and orbits are intact. Skull and scalp are unremarkable. IMPRESSION: 1. Small acute infarct in the left thalamus and posterior limb of the left internal capsule. 2. No intracranial hemorrhage. 3. Mild volume loss and mild white matter disease. Justicifation of Admission Dx: Justifications for Admission: Justification of Admission Dx: N/A NOHEMY WILLS MD May 13, 2021 12:49
[2021-05-13] MEDS ORDERED: ATOR40TA59 PO (14:50)
[2021-05-13] MEDS ORDERED: LISI5TAB15 PO (14:50)
[2021-05-13] MEDS ORDERED: AMLO-187 PO (14:50)
[2021-05-13] MEDS ORDERED: ASPI325T8 PO (14:50)
[2021-05-13 15:00] VITALS: BP 187/84
== END 2021-05-13 16:50 | disposition home or self-care (01) | DRG 78 ==
LOC: ER 10:17 → 1 WEST ICU 13:05 → ED HOLD 13:07 → 1 WEST ICU 18:33 → 6 SOUTH 05-12 15:03
PROVIDERS: ADMIT Internal Medicine; ATTEND Internal Medicine
DX: I67.4 Hypertensive encephalopathy (principal); G81.91 Hemiplegia, unspecified affecting right dominant side; I16.0 Hypertensive urgency; E66.01 Morbid (severe) obesity due to excess calories; E87.6 Hypokalemia; E88.81 Metabolic syndrome and other insulin resistance; F17.200 Nicotine dependence, unspecified, uncomplicated; I10 Essential (primary) hypertension; I70.0 Atherosclerosis of aorta; Z68.36 Body mass index [BMI] 36.0-36.9, adult; Z71.6 Tobacco abuse counseling; Z79.82 Long term (current) use of aspirin; Z91.19 Patient's noncompliance with other medical treatment and regimen; R90.82 White matter disease, unspecified; G47.00 Insomnia, unspecified; F41.9 Anxiety disorder, unspecified
CPT/HCPCS: 36415; 70450; 70496; 70498; 70551; 71045; 80048; 80053; 80061; 81001; 82550; 82962; 83735; 84100; 84484; 85025; 85610; 85730; 93005; 93306; J0360; J1650; J1940; J3490; Q9967; 92610-GN; 99285-25; C8929; G0378

== ENCOUNTER → 2021-06-05 | Outpatient (CLI) | payer OTHER ==
[2021-05-13 15:00] VITALS: BP 187/84
[~2021-06-05] MED LIST: AMLO-187 PO; ASPI325T8 PO; ATOR40TA59 PO; LISI5TAB15 PO
--- NOTE | 2021-06-05 16:33 | KCIC ---
EXAMINATION: CT chest without IV contrast INDICATION:65 years, Male, screening for lung cancer, smoking history. COMPARISON: None. TECHNIQUE: Low-dose CT scan of the chest with 3-D MIP coronal and sagittal reconstructions was [facility]. Exposure: One or more of the following individualized dose reduction techniques were utilized for [facility] s examination: 1. Automated exposure control 2. Adjustment of the mA and/or kV according to patient size 3. Use of iterative reconstruction technique. Lung-RADS assessment categories: 0: Incomplete. Additional lung cancer screening CT images and/or comparison to prior chest CT examina tions is needed. 1: Negative. Continue annual screening with low dose CT (LDCT) in 12 months. 2: Benign appearance or behavior. Continue annual screening with LDCT in 12 months. 3: Probably benign. 6 month follow-up LDCT recommended. 4A: Suspicious. 3 month LDCT follow up, PET/CT may be used when there is ? 8mm (? 268 mm3) solid comp onent. 4B or 4X: Very Suspicious. Chest CT with or without contrast, PET/CT, and/or biopsy recommended. PET/ CT may be used when there is ? 8mm (? 268 mm3) solid component. For new large nodules that develop on an annual repeat screening CT, a 1 month LDCT may be recommended to address potentially infectious o r inflammatory conditions. Modifiers: S: Clinically significant or potentially clinically significant findings (non-lung cancer). Exposure: One or more of the following individualized dose reduction techniques were utilized for [facility] examination: 1. Automated exposure control 2. Adjustment of the mA and/or kV according to patient size 3. Use of iterative reconstruction technique. FINDINGS: LUNGS/PLEURA: No focal consolidation. Subsegmental atelectasis versus scarring in the lingula. There is a 3 mm pleural-based nodule in the right middle lobe. No pleural effusion or focal pleural lesion. MEDIASTINUM: No pathologic mediastinal or hilar adenopathy. The thoracic aorta and pulmonary arteries are normal in caliber. The heart is normal in size. No pericardial effusion. Severe calcified meehan ry atherosclerosis. The visualized thyroid and the esophagus are unremarkable. AXILLA/SOFT TISSUE: No supraclavicular or axillary adenopathy. Regional soft tissues are within yue l limits. UPPER ABDOMEN: The visualized upper abdomen appears unremarkable, within the limitation of noncontras t exam. BONES: No evidence of acute fractures or aggressive osseous lesions. Multilevel degenerative changes in the spine. IMPRESSION: 1. Lung-RADS 2: Benign appearance or behavior. Continue annual screening with LDCT in 12 months. 2. Sub-5 mm solid pulmonary nodule in the right middle lobe. 3. Severe coronary artery atherosclerotic calcifications. Electronically signed by: Brenda Elmore MD (06/05/2021 4:31 PM) [id number]
== END ==
LOC: KCIC CT 15:31
PROVIDERS: ATTEND Family Medicine
DX: Z12.2 Encounter for screening for malignant neoplasm of respiratory organs (principal); R91.1 Solitary pulmonary nodule; F17.200 Nicotine dependence, unspecified, uncomplicated; I25.10 Atherosclerotic heart disease of native coronary artery without angina pectoris; I70.0 Atherosclerosis of aorta
CPT/HCPCS: 71271